=== PATIENT | male | born 1970 | race Hispanic/Latino ===

== ENCOUNTER 2019-10-09 14:21 | Emergency (ER) | payer MEDICAID, SELFPAY ==
--- NOTE | ~2019-10-09 | XR_ITS ---
EXAMINATION: XR chest 1V portable 10/09/2019 15:01 INDICATION: Cough and shortness of breath PROCEDURE: AP portable chest COMPARISON: No prior studies for comparison. FINDINGS: The lungs are clear. The cardiomediastinal silhouette is within normal limits. There are no pleural effusions. There is no pneumothorax suspected. IMPRESSION: 1: NO ACUTE CARDIOPULMONARY DISEASE. Reviewed, dictated and finalized at location A.
--- NOTE | 2019-10-09 14:26 | ED.FEVER ---
HPI - Fever General Chief Complaint: Fever Stated Complaint: FEVER,PNA Time Seen by Provider: 10/09/19 14:26 Source: patient Mode of arrival: ambulatory Limitations: no limitations History of Present Illness HPI Narrative: Patient is a 49-year-old male who presents for evaluation of pneumonia, possible coronavirus from a urgent care. Patient presented to an urgent care as he has had subjective fever, chills, chest pain for over 48 hours. Patient reports malaise, dizziness, myalgias. No nausea, vomiting or abdominal pain. Patient reports rhinorrhea and congestion. 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 Patient's entire family is sick with similar symptoms. Patient denies diarrhea, dysuria or hematuria. No recent travel. No rashes. Related Data Allergies Allergy/AdvReac Type Severity Reaction Status Date / Time No Known Allergies Allergy Verified 10/09/19 14:33 Review of Systems Review of Systems: Narrative: CONSTITUTIONAL: Reports fever and chills EYES: Denies visual changes, redness, or discharge. ENT: Reports rhinorrhea, congestion CARDIOVASCULAR: Reports chest pain RESPIRATORY: Reports dry cough, no current shortness of breath GASTROINTESTINAL: Denies abdominal pain, nausea, vomiting, or diarrhea. GENITOURINARY: Denies dysuria or hematuria. SKIN: Denies rash or itching. MUSCULOSKELETAL: Denies back pain, joint pain, reports myalgias NEUROLOGIC: Denies headache, numbness, reports feeling weakness PMFSH Past Medical History Medical History (Updated 10/09/19 @ 16:25 by Yamilka Schwartz MD) Hyperlipidemia Hypertension Surgical History Surgical History (Updated 10/09/19 @ 16:23 by Yamilka Schwartz MD) H/O hand surgery Social History Social History (Updated 10/09/19 @ 16:23 by Yamilka Schwartz MD) Smoking status: Never smoker Alcohol intake: never Substance use: never Living arrangements: with family Gender identity (if verbalized by the patient): Male Exam Narrative: Exam Narrative: GENERAL: Awake, alert, conversant HEAD: Normocephalic, atraumatic. EYES: PERRLA and EOMI. ENT: Nares clear, no rhinorrhea or epistaxis. Mucous membranes moist. NECK: Supple. CHEST: No respiratory distress, breathing even and non labored, coarse breath sounds bilaterally HEART: Regular rate, sinus rhythm ABDOMEN:Non distended, non tender EXTREMITIES: Normal range of motion. No edema. SKIN: Warm, dry, no rash. NEURO:No focal deficits. Alert and oriented x3 Course Vital Signs Vital signs: Vital Signs Temperature 36.6 C 10/09/19 14:29 Pulse Rate 95 10/09/19 14:29 Respiratory Rate 18 10/09/19 14:29 Blood Pressure 133/81 10/09/19 14:29 Pulse Oximetry 95 10/09/19 14:29 Temperature 36.6 C 10/09/19 14:29 Pulse Rate 89 10/09/19 15:46 Respiratory Rate 19 10/09/19 15:46 Blood Pressure 140/78 10/09/19 15:46 Pulse Oximetry 99 10/09/19 15:46 MDM - Fever MDM Narrative Medical decision making narrative: Patient presented for evaluation of atypical pneumonia, possible coronavirus. At the time of initial assessment, ABCs are intact and vital signs are stable. No fever here. Laboratory results are also reassuring. No severe leukocytosis or lactic acidosis. Patient with lymphopenia present. No severe elevation in inflammatory markers. No UTI. Chest x-ray with some nonspecific changes bilaterally, but radiologist reads as no acute pulmonary abnormality. Given no tachycardia, hypoxemia, I doubt PE. Patient may have atypical bacterial pneumonia versus coronavirus given entire family is sick and possibly has known exposure. At this point, patient is not hypoxemic, no increased work of breathing or severe features that would warrant the need for admission. We will start the patient on doxycycline for atypical pneumonia, advised to return to the ER for worsening shortness of breath. Patient was ad
[2019-10-09 14:29] VITALS: BP 133/81; PULSE 95; RESP 18; TEMP 36.6; O2SAT 95
[2019-10-09 14:33] VITALS: RESP 18
--- NOTE | 2019-10-09 14:47 | ECG_ITS ---
Measurements Intervals [place] Rate: 100 P: 12 SC: 175 QRS: -8 QRSD: 97 T: 41 QT: 306 QTc: 395 Interpretive Statements SINUS TACHYCARDIA INCOMPLETE RIGHT BUNDLE BRANCH BLOCK BASELINE ARTIFACT- II, III, AVF BORDERLINE ECG Electronically Signed On 10-09-2019 14:55:57 CDT by Zhou Oviedo D.O.
[2019-10-09] MEDS: SODIUM CHLORIDE 0.9% IV 2,300 ML/1,000 ML BAG 999 ML IV CONT ×2 (15:02→15:03)
[2019-10-09 15:16] LABS: Basophils Percent Auto 0.2 % (0.2-1.2); Hematocrit 45.9 % (42.0-52.0); Hemoglobin 15.9 g/dL (14.0-18.0); Immature Granulocyte Absolute 0.02 K/mm3 (0.00-0.031); Immature Granulocyte Percent A 0.2 % (0-0.5); Lymphocytes Percent Auto 10.2 % (18.3-44.2); Mean Corpuscular HGB Conc 34.6 g/dl (32-36); Mean Corpuscular Hemoglobin 29.9 pg (26-34); Mean Corpuscular Volume 86.3 fl (80-100); Mean Platelet Volume 11.5 fl (7.4-10.4); Monocytes Absolute Auto 0.9 K/mm3 (0.1-0.6); Monocytes Percent Auto 9.5 % (2.6-8.5); Neutrophils Absolute Auto 7.8 K/mm3 (1.3-6.7); Neutrophils Percent Auto 79.9 % (45.5-73.1); Platelet Count Result 175 k/mm3 (150-375); Red Blood Count 5.32 M/mm3 (4.6-6.20); Red Cell Distribution Width 13.2 % (11.5-14.5); White Blood Count 9.8 K/mm3 (4.5-10.0)
[2019-10-09 15:23] LABS: INR 0.9; Prothrombin Time 12.3 Seconds (11.1-14.7)
[2019-10-09 15:24] LABS: Partial Thromboplastin Time 33.3 SECONDS (22.3-36.8)
[2019-10-09 15:25] LABS: Lactic Acid Reflex 1.5 mmol/L (0.7-2.1)
[2019-10-09 15:28] LABS: Alanine Aminotransferase 19 U/L (4-50); Albumin Level 4.6 g/dL (3.5-5.1); Alkaline Phosphatase 76 U/L (38-126); Aspartate Amino Transferase 27 U/L (17-59); Bilirubin,Total 0.4 mg/dL (0.2-1.3); Blood Urea Nitrogen 14 mg/dL (9-20); CRP 4.8 mg/dL (<1.0); Calcium 8.6 mg/dL (8.4-10.2); Carbon Dioxide 26 mmol/L (22-30); Chloride 99 mmol/L (98-107); Estimated CRCL calculation 85 ml/min; Estimated Glomerular Filt Rate > 60; Glucose 111 mg/dL (75-110); Lactate Dehydrogenase 447 U/L (313-618); Potassium 3.4 mmol/L (3.4-5.0); Sodium 134 mmol/L (137-145)
[2019-10-09 15:36] LABS: Add Urine Microscopic? YES; Appearance Urine Clear (Clear); Bacteria Urine Trace /hpf; Bilirubin Urine Negative (Negative); Blood Urine 1+ (Negative); Color Urine Yellow (Yellow); Glucose Urine UA Negative (Negative); Ketones Urine Negative (Negative); Leukocyte Esterase Ur Negative LEU/UL (Negative); Mucus Urine Few /lpf; Nitrate Urine Negative (Negative); Protein Urine 1+ mg/dL (Negative); Specific Grav Ur 1.026 (1.001-1.035); Urobilinogen Urine Negative mg/dL (<2.0); WBC Urine 0-3 /hpf
[2019-10-09 15:38] LABS: Troponin I < 0.012 ng/mL (0.000-0.034)
[2019-10-09 15:46] VITALS: BP 140/78; PULSE 89; RESP 19; O2SAT 99
[2019-10-09 16:24] VITALS: BP 143/92; PULSE 90; RESP 20; O2SAT 96
[2019-10-10 13:54] LABS: SARS-CoV-2 RNA PCR Positive
== END 2019-10-09 16:30 | disposition home or self-care (01) ==
PROVIDERS: Emergency Provider Emergency Medicine
DX: U07.1 COVID-19 (principal); J12.89 Other viral pneumonia; E78.5 Hyperlipidemia, unspecified; I10 Essential (primary) hypertension; Z20.828 Contact with and (suspected) exposure to other viral communicable diseases; R00.0 Tachycardia, unspecified; I45.10 Unspecified right bundle-branch block
CPT/HCPCS: 36415; 71045; 80053; 81001; 82728; 83605; 83615; 84145; 84484; 85025; 85610; 85730; 86140; 87040; 87635; 93005; 96365; 96367; 99284; C9803; J0456; J0696; J7030; U0003

== ENCOUNTER 2019-10-13 19:15 | Inpatient (IN) | payer MEDICAID, SELFPAY ==
[2019-10-13] VITALS (10 sets, daily range): BP systolic 109–139; BP diastolic 66–91; PULSE 77–93; RESP 28–37; TEMP 37.9–39.4; O2SAT 91–97; BMI 32.3
--- NOTE | ~2019-10-13 | XR_ITS ---
EXAMINATION: XR chest 1V portable DATE: 10/17/2019 06:16 INDICATION: Acute respiratory failure TECHNIQUE: frontal view of the chest was obtained. COMPARISON: Chest radiograph dated 10/16/2019 FINDINGS: Endotracheal tube tip 2.9 cm above the aaron. Increase in bilateral lower lung predominant indistinc t interstitial and patchy airspace opacities throughout both lungs with more dense consolidation at t he bilateral lower lung zones. No pneumothorax. Cannot exclude small bilateral pleural effusions. The cardiomediastinal silhouette is normal. IMPRESSION: 1. Interval increase in diffuse bilateral lung disease which could represent pneumonia, pulmonary karla ma and/or ARDS. Reviewed, dictated and finalized at location A. IMPRESSION: 1. Interval increase in diffuse bilateral lung disease which could represent pn eumonia, pulmonary edema and/or ARDS.
--- NOTE | ~2019-10-13 | XR_ITS ---
EXAMINATION: XR chest port-a-cath/central EXAM DATE: 10/16/2019 21:55 INDICATION: Central line placement. COVID 19. TECHNIQUE: Portable AP frontal chest x-ray was obtained. Comparison is made to prior examination from earlier same day. FINDINGS: There is a new right-sided IJ venous line which is curled above the right clavicle level. E ndotracheal tube tip is 3 centimeters above the aaron (ideal range is between 2 to 5 cm). Feeding t ube is in position. Patient has extensive bilateral acute airspace consistent with COVID 19 pneumonia, with air bronchogr ams, some basilar confluence. No pneumothorax or pleural effusion. Cardiomediastinal silhouette is no rmal. IMPRESSION: 1. Abnormally positioned right IJ line, coronal above the right clavicle. 2. Extensive bilateral acute airspace disease not significantly changed. Reviewed, dictated and finalized at location A.
--- NOTE | ~2019-10-13 | XR_ITS ---
EXAMINATION: XR chest 1V portable DATE: 10/15/2019 05:31 INDICATION: COVID-19 TECHNIQUE: frontal view of the chest was obtained. COMPARISON: Chest radiograph dated 10/13/2019 FINDINGS: Continued increase in diffuse patchy airspace opacities throughout both lungs. No pleural effusion or pneumothorax. Cardiomegaly. IMPRESSION: 1. Worsening extensive bilateral airspace disease consistent with pneumonia. Reviewed, dictated and finalized at location A.
--- NOTE | ~2019-10-13 | XR_ITS ---
EXAMINATION: XR chest 1V portable DATE: 10/16/2019 05:42 INDICATION: Acute respiratory failure TECHNIQUE: frontal view of the chest was obtained. COMPARISON: Chest radiograph dated 10/15/2019 FINDINGS: Endotracheal tube tip 3.1 cm above the aaron. Nasogastric tube extends below the left hemidiaphragm with distal tip collimated off the study. No significant interval change in diffuse patchy airspace opacities throughout both lungs with more d ense consolidation with air bronchograms in the bilateral lower lung zones. No pneumothorax or pleura l effusion. The cardiomediastinal silhouette is normal. Visualized bones and soft tissues are unremar kable. IMPRESSION: 1. No interval change in diffuse bilateral lung disease consistent with pneumonia. Reviewed, dictated and finalized at location A. IMPRESSION: 1. No interval change in diffuse bilateral lung disease consistent with pneumon ia.
--- NOTE | ~2019-10-13 | XR_ITS ---
EXAMINATION: XR chest 1V portable EXAM DATE: 10/13/2019 19:54 INDICATION: Shortness of breath cough. Chest pain. COVID 19 positive. TECHNIQUE: Portable AP frontal chest x-ray was obtained. Comparison is made to prior examination from 10/09/2019. FINDINGS: Interval development of rather extensive bilateral ill-defined groundglass peripheral predo minant opacities, appearance is characteristic but not specific for acute lung injury from COVID 19 i nfection. There is mild cardiomegaly and pulmonary vascular congestion. No pneumothorax or pleural ef fusion. Mild bony degenerative changes. IMPRESSION: Rather extensive airspace disease consistent with COVID 19 infection. Reviewed, dictated and finalized at location A. IMPRESSION: Rather extensive airspace disease consistent with COVID 19 infecti on.
--- NOTE | ~2019-10-13 | XR_ITS ---
EXAMINATION: XR chest ET placement EXAM DATE: 10/15/2019 22:56 INDICATION: COVID 19 pneumonia. Respiratory failure. TECHNIQUE: Portable AP frontal chest x-ray was obtained. Comparison is made to prior examination from earlier same date. FINDINGS: Endotracheal tube tip is 3 centimeters above the aaron (ideal range is between 2 to 5 cm). Feeding tube is in position. Patient has extensive bilateral acute airspace consistent likely COVI D 19 pneumonia. Compared to prior study, better visualize of air bronchograms, may indicate more conf luence, increased density of airspace disease. No pneumothorax or pleural effusion. Cardiac silhouett e is stable in size compared to prior exam. IMPRESSION: 1. ET, NG tube in position. 2. Extensive bilateral pneumonia. Reviewed, dictated and finalized at location G.
--- NOTE | ~2019-10-13 | XR_ITS ---
EXAMINATION: XR chest 1V portable DATE: 10/18/2019 05:59 INDICATION: Acute respiratory failure TECHNIQUE: frontal view of the chest was obtained. COMPARISON: Chest radiograph dated 10/17/2019 FINDINGS: Endotracheal tube tip 2.9 cm above the aaron. Nasogastric tube extends below the left hemidiaphragm with distal tip collimated off the study. No significant interval change in diffuse airspace opaciti es throughout both lungs. No pneumothorax or definitive pleural effusion The cardiomediastinal silhou ette is normal. IMPRESSION: 1. Unchanged diffuse bilateral lung disease which could represent pneumonia, pulmonary edema and/or A RDS. Reviewed, dictated and finalized at location A. IMPRESSION: 1. Unchanged diffuse bilateral lung disease which could represent pneumonia, pu lmonary edema and/or ARDS.
--- NOTE | 2019-10-13 19:17 | ECG_ITS ---
Measurements Intervals [place] Rate: 88 P: 16 VT: 175 QRS: -4 QRSD: 97 T: 15 QT: 329 QTc: 400 Interpretive Statements SINUS RHYTHM INCOMPLETE RIGHT BUNDLE BRANCH BLOCK VOLTAGE CRITERIA FOR LVH BASELINE ARTIFACT- AVF BORDERLINE ECG Electronically Signed On 10-13-2019 20:10:22 CDT by Zhou Oviedo D.O.
[2019-10-13 19:55] LABS: Basophils Percent Auto 0.2 % (0.2-1.2); Hematocrit 39.5 % (42.0-52.0); Hemoglobin 14.2 g/dL (14.0-18.0); Immature Granulocyte Absolute 0.01 K/mm3 (0.00-0.031); Immature Granulocyte Percent A 0.2 % (0-0.5); Lymphocytes Absolute Auto 0.84 K/mm3 (0.9-3.2); Mean Corpuscular HGB Conc 35.9 g/dl (32-36); Mean Corpuscular Hemoglobin 29.8 pg (26-34); Monocytes Absolute Auto 0.4 K/mm3 (0.1-0.6); Monocytes Percent Auto 8.4 % (2.6-8.5); Neutrophils Absolute Auto 3.2 K/mm3 (1.3-6.7); Neutrophils Percent Auto 72.2 % (45.5-73.1); Platelet Count Result 127 k/mm3 (150-375); Red Blood Count 4.76 M/mm3 (4.6-6.20); Red Cell Distribution Width 12.4 % (11.5-14.5); White Blood Count 4.4 K/mm3 (4.5-10.0)
[2019-10-13 20:02] LABS: INR 0.9; Prothrombin Time 11.9 Seconds (11.1-14.7)
[2019-10-13 20:03] LABS: Partial Thromboplastin Time 37.6 SECONDS (22.3-36.8)
[2019-10-13 20:04] LABS: Lactic Acid Reflex 1.3 mmol/L (0.7-2.1)
--- NOTE | 2019-10-13 20:06 | ED.SOB ---
HPI - SOB/Dyspnea General Chief Complaint: Shortness of Breath/Dyspnea Stated Complaint: COVID +, SOB Time Seen by Provider: 10/13/19 20:05 Related Data Allergies Allergy/AdvReac Type Severity Reaction Status Date / Time No Known Allergies Allergy Verified 10/09/19 14:33 [facility] Past Medical History Medical History (Updated 10/13/19 @ 21:19 by Lilly Winter MD) Hyperlipidemia Hypertension Surgical History Surgical History (Updated 10/09/19 @ 16:23 by Yamilka Schwartz MD) H/O hand surgery Social History Social History (Updated 10/09/19 @ 16:23 by Yamilka Schwartz MD) Smoking status: Never smoker Alcohol intake: never Substance use: never Gender identity (if verbalized by the patient): Male Course Consultations Consultation #1: Call the hospitalist for admission. Dr. Colunga accepts. Date: 10/13/19 Time: 21:19 Vital Signs Vital signs: Vital Signs Temperature 102.7 F H 10/13/19 19:30 Pulse Rate 93 10/13/19 19:30 Respiratory Rate 37 H 10/13/19 19:30 Blood Pressure 139/91 H 10/13/19 19:30 Pulse Oximetry 91 10/13/19 19:30 Temperature 102.7 F H 10/13/19 19:30 Pulse Rate 91 10/13/19 20:18 Respiratory Rate 34 H 10/13/19 20:18 Blood Pressure 117/81 10/13/19 20:18 Pulse Oximetry 94 10/13/19 20:18 MDM - SOB/Dyspnea MDM Narrative Medical decision making narrative: Patient presents from 1 week of coughing shortness of breath and fever. His temperature here is 102.7. He points to his chest when I asked for pain. Differential Diagnosis Differential diagnosis: Likely other (Known COVID) Medical Records Attestation: I reviewed the patient's medical records. Lab Data Attestation: I reviewed the patient's lab results. Result diagrams: 10/13/19 19:44 10/13/19 19:44 Labs: Lab Results 10/13/19 10/13/19 10/13/19 Range/Units 19:40 19:41 19:44 WBC 4.4 L (4.5-10.0) K/mm3 RBC 4.76 (4.6-6.20) M/mm3 Hgb 14.2 (14.0-18.0) g/dL Hct 39.5 L (42.0-52.0) % MCV 83.0 (80-100) fl MCH 29.8 (26-34) pg MCHC 35.9 (32-36) g/dl RDW 12.4 (11.5-14.5) % Plt Count 127 L (150-375) k/mm3 MPV 12.0 H (7.4-10.4) fl Immature Gran % (Auto) 0.2 (0-0.5) % Neut % (Auto) 72.2 (45.5-73.1) % Lymph % (Auto) 19.0 (18.3-44.2) % [place] % (Auto) 8.4 (2.6-8.5) % Eos % (Auto) 0.0 (0-4.4) % Baso % (Auto) 0.2 (0.2-1.2) % Lymph # (Auto) 0.84 L (0.9-3.2) K/mm3 Deuel # (Auto) 0.4 (0.1-0.6) K/mm3 Eos # (Auto) 0.0 (0-0.3) K/mm3 Baso # (Auto) 0.0 (0.0-0.1) K/mm3 Abs Immat Gran (auto) 0.01 (0.00-0.031) K/mm3 Absolute Neuts (auto) 3.2 (1.3-6.7) K/mm3 Absolute Nucleated RBC 0.0 (0.0-0.012) K/mm3 Nucleated RBC % 0.0 (0.0-0.2) % PT 11.9 (11.1-14.7) Seconds INR 0.9 APTT 37.6 H (22.3-36.8) SECONDS Sodium (137-145) mmol/L Potassium (3.4-5.0) mmol/L Chloride (98-107) mmol/L Carbon Dioxide (22-30) mmol/L BUN (9-20) mg/dL Creatinine (0.7-1.3) mg/dL Estim Creat Clear Calc ml/min Estimated GFR (59 - ) Glucose (75-110) mg/dL Lactic Acid (0.7-2.1) mmol/L Calcium (8.4-10.2) mg/dL Total Bilirubin (0.2-1.3) mg/dL AST (17-59) U/L ALT (4-50) U/L Alkaline Phosphatase (38-126) U/L Troponin I 0.015 (0.000-0.034) ng/mL C-Reactive Protein (<1.0) mg/dL Total Protein (6.3-8.2) g/dL Albumin (3.5-5.1) g/dL 10/13/19 10/13/19 Range/Units 19:44 19:44 WBC (4.5-10.0) K/mm3 RBC (4.6-6.20) M/mm3 Hgb (14.0-18.0) g/dL Hct (42.0-52.0) % MCV (80-100) fl MCH (26-34) pg MCHC (32-36) g/dl RDW (11.5-14.5) % Plt Count (150-375) k/mm3 MPV (7.4-10.4) fl Immature Gran % (Auto) (0-0.5) % Neut % (Auto) (45.5-73.1) % Lymph % (Auto) (18.3-44.2) % Deuel % (Auto) (2.6-8.5) % Eos % (Auto) (0-4.4) % Baso % (Auto) (0.2-1.2) % Lymph # (Auto)
[2019-10-13 20:08] LABS: Alanine Aminotransferase 32 U/L (4-50); Albumin Level 3.9 g/dL (3.5-5.1); Alkaline Phosphatase 65 U/L (38-126); Aspartate Amino Transferase 70 U/L (17-59); Bilirubin,Total 0.3 mg/dL (0.2-1.3); Blood Urea Nitrogen 12 mg/dL (9-20); CRP 7.8 mg/dL (<1.0); Calcium 7.9 mg/dL (8.4-10.2); Carbon Dioxide 21 mmol/L (22-30); Chloride 99 mmol/L (98-107); Estimated CRCL calculation 94 ml/min; Estimated Glomerular Filt Rate > 60; Glucose 121 mg/dL (75-110); Sodium 129 mmol/L (137-145)
[2019-10-13] MEDS: ACETAMINOPHEN 325 MG TABLET 650 MG PO (20:36)
[2019-10-13 20:45] LABS: Alveolar/Arterial O2 Gradient 211.4 mmHg; Base Excess ABG -3.9 mEq/l (+/-2.0); Device NASAL CANNULA; Fractional Inspired Oxygen 44 %; HCO3 ABG 19.1 mEq/l (22.0-26.0); Modified Allen's Test Pass; Oxygen Content ABG 19.2 %vol (16.0-22.0); Oxygen Saturation ABG 94.3 % (95.0-100.0); Oxyhemoglobin 92.9 % THb (90.0-100.0); PCO2 ABG 29.8 mmHg (35.0-45.0); PO2 ABG 68.4 mmHg (80.0-100.0); PO2 FiO2 Ratio Arterial Blood 1.55 %; Site Drawn LEFT RADIAL; Total Hemoglobin 14.7 g/dL (12.0-18.0); pH ABG 7.425 (7.350-7.450)
[2019-10-13 20:50] LABS: Troponin I 0.015 ng/mL (0.000-0.034)
[2019-10-13 21:30] LABS: Add Urine Microscopic? YES; Appearance Urine Clear (Clear); Bacteria Urine Trace /hpf; Bilirubin Urine Negative (Negative); Blood Urine 1+ (Negative); Color Urine Yellow (Yellow); Glucose Urine UA Negative (Negative); Ketones Urine Negative (Negative); Leukocyte Esterase Ur Negative LEU/UL (Negative); Mucus Urine Rare /lpf; Nitrate Urine Negative (Negative); Protein Urine 2+ mg/dL (Negative); RBC Urine 0-2 /hpf (0-2); Specific Grav Ur 1.017 (1.001-1.035); Urobilinogen Urine Negative mg/dL (<2.0)
[2019-10-13] MEDS: IBUPROFEN 600 MG TABLET PO (21:55)
--- NOTE | 2019-10-13 22:33 | ADMGEN ---
This patient, Harrison Mayo, was admitted to [facility] Surg Room 329-01. Patient/family oriented to hospital policies and general routines including ID bracelet, bed and alarms, visiting hours, pain management, procedures, bathroom and other care routines, personal items, smoking policy, room service/diet, and visiting hours. Valuables list has been completed. Information on how to activate the Rapid Response Team has been discussed. Patient/Family are encouraged to report perceived risks to care and to ask questions if they do not understand what they are told or what they should do.
--- NOTE | 2019-10-13 22:44 | PM.IMHP ---
H&P: HPI History of Present Illness Chief complaint: COVID Narrative: This is a pleasant 49 year old Greek speaking male with known HTN and hyperlipidemia who recently tested positive for COVID-19 virus and presented to the hospital for evaluation of shortness of breath. The patient relates that he has had upper respiratory symptoms including shortness of breath, a dry cough, congestion and fevers for the past week. He also has been having diarrhea. He has had daily fevers in the low 100s. He denies any significant wheezing or chest pain. The patient was evaluated in the ER and found to be in acute hypoxic respiratory failure and placed on 6L of oxygen via NC. CXR was obtained which demonstrated extensive airspace disease consistent with COVID 19 infection. The patient denies any other symptoms at this time and we have been asked to admit the patient to the hospital for further care. Review of Systems Review of Systems: All systems reviewed & are unremarkable except as noted in HPI and below PMFSH Past Medical History Medical History Hyperlipidemia Hypertension Surgical History Surgical History H/O hand surgery Family History Family History (Updated 10/13/19 @ 22:50 by Drake Colunga MD) Other Hypertension Social History Social History Smoking status: Former smoker Tobacco type: cigarettes Alcohol intake: never Substance use: never Gender identity (if verbalized by the patient): Male Spiritual care concerns: No Meds Home Medications and Allergies Home Medications Medication Instructions Recorded Confirmed Type acetaminophen 500 mg PO Q6H PRN #30 cap 10/09/19 10/13/19 Rx doxycycline hyclate 100 mg PO Q12H 10 Days #20 cap 10/09/19 10/13/19 Rx Allergies Allergy/AdvReac Type Severity Reaction Status Date / Time No Known Allergies Allergy Verified 10/09/19 14:33 Vital Signs Vital Signs - 24 hr 10/13/19 19:30 10/13/19 19:35 10/13/19 20:18 Temperature 39.3 C H Pulse Rate 93 91 Respiratory Rate 37 H 34 H Blood Pressure 139/91 H 117/81 Pulse Oximetry 91 95 94 10/13/19 21:06 10/13/19 21:28 10/13/19 21:55 Temperature 39.4 C H 39.4 C H 39.4 C H Pulse Rate Respiratory Rate Blood Pressure Pulse Oximetry 10/13/19 22:07 10/13/19 22:10 Temperature 38.8 C H Pulse Rate 80 Respiratory Rate 28 H Blood Pressure 116/79 Pulse Oximetry 94 Exam Const: General: cooperative, alert, awake, diaphoretic, ill appearing and other (Febrile to touch++ ) Nutritional Appearance: obese Orientation/consciousness: patient oriented x3 HENMT: Head: normal to inspection General nose exam: Normal external nose present Face and sinus: normal facial exam Eyes: Pupils: Equal, round and reactive pupils present EOM: EOMs intact bilaterally Neck: Neck: supple and no JVD Thyroid: thyroid normal Lymphatic: lymphadenopathy not noted Resp: Effort & Inspection: tachypneic Auscultation: crackles bilateral and diminished lung sounds Cardio: Rate: regular rate Rhythm: regular rhythm Heart sounds: no murmurs GI: Inspection: normal to inspection Auscultation: normal bowel sounds Skin: General skin exam: normal color and no rashes or lesions noted Neuro: General: patient oriented x3 Cranial nerves: Yes CN's II-XII intact bilaterally and Yes Equal, round and reactive pupils present Speech: normal speech Motor exam (neuro): 5/5 motor strength present throughout Sensory Exam: normal sensation Extrem: General: normal to inspection and no edema Psych: Mental Status: mental status grossly normal Affect: normal affect H&P: Results Labs Labs: Short CBC 10/13/19 Range/Units 19:44 WBC 4.4 L (4.5-10.0) K/mm3 Hgb 14.2 (14.0-18.0) g/dL Hct 39.5 L (42.0-52.0) % Plt Count 127 L (150-375)
[2019-10-14] VITALS (26 sets, daily range): BP systolic 101–119; BP diastolic 54–80; PULSE 59–104; RESP 18–40; TEMP 36.3–39.1; O2SAT 86–100
[2019-10-14] MEDS: ACETAMINOPHEN 325 MG TABLET 650 MG PO ×4 (00:32→21:02)
--- NOTE | 2019-10-14 02:12 | PCRCNOTE ---
Window of time for administration has passed. See next scheduled administration.
[2019-10-14] MEDS: SODIUM CHLORIDE 0.9% IV 1,000 ML 75 ML IV CONT (06:02)
[2019-10-14 06:21] LABS: Basophils Percent Auto 0.2 % (0.2-1.2); Hematocrit 41.9 % (42.0-52.0); Hemoglobin 14.6 g/dL (14.0-18.0); Immature Granulocyte Absolute 0.02 K/mm3 (0.00-0.031); Immature Granulocyte Percent A 0.5 % (0-0.5); Immature Platelet Fraction Pct 7.7 % (0.9-11.2); Lymphocytes Percent Auto 27.9 % (18.3-44.2); Mean Corpuscular HGB Conc 34.8 g/dl (32-36); Mean Corpuscular Hemoglobin 29.8 pg (26-34); Mean Corpuscular Volume 85.5 fl (80-100); Mean Platelet Volume 12.1 fl (7.4-10.4); Monocytes Absolute Auto 0.3 K/mm3 (0.1-0.6); Neutrophils Absolute Auto 2.8 K/mm3 (1.3-6.7); Neutrophils Percent Auto 65.4 % (45.5-73.1); Platelet Count Result 113 k/mm3 (150-375); Red Cell Distribution Width 12.8 % (11.5-14.5); White Blood Count 4.3 K/mm3 (4.5-10.0)
[2019-10-14 06:39] LABS: Potassium 3.8 mmol/L (3.4-5.0)
[2019-10-14 06:49] LABS: Blood Urea Nitrogen 20 mg/dL (9-20); Calcium 7.7 mg/dL (8.4-10.2); Carbon Dioxide 22 mmol/L (22-30); Chloride 102 mmol/L (98-107); Estimated CRCL calculation 52 ml/min; Estimated Glomerular Filt Rate 59; Glucose 96 mg/dL (75-110); Magnesium 2.3 mg/dL (1.6-2.3); Sodium 133 mmol/L (137-145)
[2019-10-14] MEDS: ALBUTEROL SULFATE (*SP) AEROSOL 1 PUFF 2 PUFF INHALATION ×4 (07:24→19:14)
[2019-10-14] MEDS: ENOXAPARIN 40 MG/0.4 ML SYRINGE SUB-Q ×2 (09:44→21:05)
[2019-10-14] MEDS: DOXYCYCLINE HYCLATE 100 MG TABLET PO (09:44)
--- NOTE | 2019-10-14 13:37 | PM.IMPN ---
Progress Note: A&P Assessment and Plan (1) Acute respiratory failure with hypoxia: Code(s): J96.01 - Acute respiratory failure with hypoxia Status: Acute Assessment and Plan: Secondary to COVID-19 infection. The patient is requiring 5L per NC. Continue supplemental oxygen via NC. Will begin continuous pulse oximetry and telemetry. Continue bronchodilators via MDI PRN. (2) COVID-19: Code(s): U07.1 - COVID-19 Status: Acute Assessment and Plan: SARS-CoV-2 testing was positive 10/09/19. His symptoms progressed over the past week so he presented to the ED for further evaluation. He is on 5L per NC. Continue supplemental oxygen as needed to achieve a pulse oxygen saturation of 90%. Continue droplet isolation. Continue supportive care with antipyretics PRN. CRP is elevated at 7.8. AST is 70. Will trend acute phase reactants. Will repeat CXR tomorrow. Continue to monitor. (3) BAYLEE (acute kidney injury): Code(s): N17.9 - Acute kidney failure, unspecified Status: Acute Assessment and Plan: Cr was 0.7 and BUN 12 at admission. Cr is 1.3 and BUN 20 today. UA proteinuria whichs likely a result of his COVID-19 infection. Plan to continue gentle IV fluids and monitor Cr closely. (4) Thrombocytopenia: Code(s): D69.6 - Thrombocytopenia, unspecified Status: Acute Assessment and Plan: Platets are low at 113. This is likely reactive. Will continue to monitor. (5) Hyponatremia: Code(s): E87.1 - Hypo-osmolality and hyponatremia Status: Acute Assessment and Plan: Sodium at admission was 129. Sodium 6/ was 134. He appears dehydrated. Insensible losses due to fever are likely contributing. He is receiving gentle IV fluids due to BAYLEE. Sodium improved to 133 today. Will continue to monitor. (6) DVT prophylaxis: Code(s): Z29.9 - Encounter for prophylactic measures, unspecified Status: Acute Assessment and Plan: Plan to continue lovenox SQ and monitor platelets closely. Time Spent With Patient Time with patient: 15 - 25 minutes Subjective Date/time seen: 10/14/19 13:37 Interval history: Mr. Mayo is seen in follow-up for COVID-19. He reports dyspnea at rest and with exertion. He also endorses left hip discomfort. He denies chest pain and palpitations. He endorses chills. He denies vomiting and nausea. He reports diarrhea last night at 10:00PM but as not had any episodes since. He is tolerating PO intake well. He reports cough with white sputum. He reports generalized weakness. He denies leg discomfort and swelling. Review of Systems Review of Systems: All systems reviewed & are unremarkable except as noted in HPI and below Exam Narrative: Exam Narrative: General: Well-developed, cooperative, and appears to be in no acute distress. HEENT: Normocephalic and atraumatic. Eyes: Conjunctivae and lids normal. PERRL. EOMI. Ears: External ears normal without lesions or deformity. Nose: External nose normal without nasal discharge. Mouth and Throat: Mucous membranes moist. Posterior pharynx without erythema or exudate. Neck: Supple without lymphadenopathy or masses. Cardiac: Regular rate and rhythm. S1 and S2 normal. No murmur appreciated. No JVD. No carotid bruits. Lungs: Normal respiratory effort without accessory muscle use. Clear to auscultation bilaterally without rales, rhonchi, and wheezing. Abdomen: Appearance grossly normal. Bowel sounds present in all four quadrants. Abdomen is soft, non-distended, and non-tender. Musculoskeletal: No joint erythema, swelling, or tenderness. ROM within normal limits. Extremities: No lower extremity edema. Palpable DP and PT bilaterally. Neurological: Alert and oriented x3. No focal neurological deficits noted. Speech is clear. Skin: Normal color, texture, and turgor. No lesions or eruptions. Psychiatric: Judgment and insight intact. Mood and affect normal. Objectiv
[2019-10-14 15:29] LABS: Alveolar/Arterial O2 Gradient 277.6 mmHg; Base Excess ABG -4.6 mEq/l (+/-2.0); Carboxyhemoglobin 0.3 % THb (0-2.0); Fractional Inspired Oxygen 50 %; Methemoglobin ABG 0.4 %THb (0-1.5); Oxygen Content ABG 17.4 %vol (16.0-22.0); Oxyhemoglobin 85.2 % THb (90.0-100.0); PCO2 ABG 27.5 mmHg (35.0-45.0); PO2 FiO2 Ratio Arterial Blood 0.96 %; Reduced Hemoglobin 14.1 %THb (0-5.0); Total Hemoglobin 14.6 g/dL (12.0-18.0); pH ABG 7.434 (7.350-7.450)
[2019-10-14 15:32] LABS: Device NASAL CANNULA; Modified Allen's Test Pass; Oxygen Saturation ABG 85.8 % (95.0-100.0); Site Drawn RIGHT RADIAL
--- NOTE | 2019-10-14 16:47 | PC.NURSE ---
This patient, Harrison Mayo, was transferred to [ICU ] on 10/14/19 at 1650. Personal belongings sent with patient. Belongings list checked and signed with receiving [RN]. Report given to [Peter]. Appropriate documentation sent with patient.
--- NOTE | 2019-10-14 16:52 | PC.NURSE ---
Patient transferred from [facility] to ICU1 via bed as IMU overflow at 1630. Medications and chart brought with patient. Patient is currently on 12L hi flow O2.
[2019-10-14] MEDS: SODIUM CHLORIDE 0.9% IV 1,000 ML 50 ML IV CONT (17:04)
--- NOTE | 2019-10-14 19:22 | PC.NURSE ---
Patient placed on NRB with 15L HF NC. Patient prior to was 82%. Now 95-98%. Continue to monitor. Patient denies distress. 88SR, 30RR, 96%, 119/80. 100.9 axil.
[2019-10-14] MEDS: GUAIFENESIN 200 MG/10 ML UDC PO (21:02)
--- NOTE | 2019-10-14 21:19 | PC.NURSE ---
Patient placed on Airvo2 at 60L 86% with NRB.
[2019-10-15] VITALS (39 sets, daily range): BP systolic 78–237; BP diastolic 47–133; PULSE 68–128; RESP 22–41; TEMP 36.9–38.9; O2SAT 29–100
[2019-10-15] MEDS: GUAIFENESIN 200 MG/10 ML UDC PO ×3 (00:59→18:07)
[2019-10-15] MEDS: ACETAMINOPHEN 325 MG TABLET 650 MG PO ×4 (00:59→18:07)
[2019-10-15 04:17] LABS: Basophils Percent Auto 0.2 % (0.2-1.2); Hematocrit 37.1 % (42.0-52.0); Hemoglobin 13.1 g/dL (14.0-18.0); Immature Granulocyte Absolute 0.06 K/mm3 (0.00-0.031); Immature Granulocyte Percent A 0.7 % (0-0.5); Immature Platelet Fraction Pct 7.4 % (0.9-11.2); Lymphocytes Absolute Auto 0.66 K/mm3 (0.9-3.2); Lymphocytes Percent Auto 7.8 % (18.3-44.2); Mean Corpuscular HGB Conc 35.3 g/dl (32-36); Mean Corpuscular Hemoglobin 29.5 pg (26-34); Mean Corpuscular Volume 83.6 fl (80-100); Mean Platelet Volume 11.9 fl (7.4-10.4); Monocytes Absolute Auto 0.2 K/mm3 (0.1-0.6); Monocytes Percent Auto 2.7 % (2.6-8.5); Neutrophils Absolute Auto 7.5 K/mm3 (1.3-6.7); Neutrophils Percent Auto 88.6 % (45.5-73.1); Platelet Count Result 121 k/mm3 (150-375); Red Blood Count 4.44 M/mm3 (4.6-6.20); Red Cell Distribution Width 12.7 % (11.5-14.5); White Blood Count 8.5 K/mm3 (4.5-10.0)
[2019-10-15 04:35] LABS: D Dimer 0.87 ug/mL (<0.48)
[2019-10-15 04:59] LABS: Alanine Aminotransferase 44 U/L (4-50); Albumin Level 3.3 g/dL (3.5-5.1); Alkaline Phosphatase 81 U/L (38-126); Aspartate Amino Transferase 97 U/L (17-59); Bilirubin,Total 0.4 mg/dL (0.2-1.3); Blood Urea Nitrogen 13 mg/dL (9-20); CRP 18.7 mg/dL (<1.0); Calcium 7.5 mg/dL (8.4-10.2); Carbon Dioxide 21 mmol/L (22-30); Chloride 104 mmol/L (98-107); Estimated CRCL calculation 108 ml/min; Estimated Glomerular Filt Rate > 60; Glucose 112 mg/dL (75-110); Potassium 3.8 mmol/L (3.4-5.0); Sodium 133 mmol/L (137-145)
[2019-10-15 05:06] LABS: Lactate Dehydrogenase 3075 U/L (313-618)
[2019-10-15 05:46] LABS: Vitamin D 25 Hydroxy 23.2 ng/mL
[2019-10-15] MEDS: ALBUTEROL SULFATE (*SP) AEROSOL 1 PUFF 2 PUFF INHALATION ×5 (07:52→23:34)
[2019-10-15] MEDS: SODIUM CHLORIDE 0.9% IV 1,000 ML 50 ML IV CONT (08:44)
[2019-10-15] MEDS: ENOXAPARIN 40 MG/0.4 ML SYRINGE SUB-Q ×2 (08:49→20:24)
--- NOTE | 2019-10-15 09:12 | WPDCNINT ---
Assessment and Plan Assessment and plan (1) Acute respiratory failure with hypoxia: Code(s): J96.01 - Acute respiratory failure with hypoxia Status: Acute Assessment and Plan: Acute respiratory failure with increasing oxygen requirements, dominant high-flow nasal therapy with 93% FiO2 along with 15 L non-rebreather mask. O2 sats between 88 and 92% - patient tachypneic with respiratory rate between 30s to 40s, patient does look comfortable at this time. - I was consulted to manage the patient for COVID-19 -chest x-ray and ABGs reviewed, continue high-flow nasal therapy along with 50 L non-rebreather mask -started patient on ceftriaxone and azithromycin -continue albuterol MDI (2) COVID-19: Code(s): U07.1 - COVID-19 Status: Acute Assessment and Plan: Positive SARS-CoV-2 PCR - patient placed on droplet, airborne and contact isolation/precautions -pictures disease has been consulted, agrees with REMDESIVIR, orders have been placed (3) Thrombocytopenia: Code(s): D69.6 - Thrombocytopenia, unspecified Status: Acute Assessment and Plan: Unknown etiology at this time. Platelets have improved, will continue to monitor (4) Fever: Qualifiers: Fever type: unspecified Qualified Code(s): R50.9 - Fever, unspecified Code(s): R50.9 - Fever, unspecified Status: Acute Assessment and Plan: Patient with fevers T-max of 102.3? -continue p.r.n. Tylenol (5) Hyponatremia: Code(s): E87.1 - Hypo-osmolality and hyponatremia Status: Acute Assessment and Plan: Stable hyponatremia, will continue to monitor (6) BAYLEE (acute kidney injury): Code(s): N17.9 - Acute kidney failure, unspecified Status: Acute Assessment and Plan: Patient had creatinine of 1.3 unit patient, has received IV fluids, creatinine has normalized to 0.6 -urine output has been adequate -continue to monitor renal function, electrolytes and urine output (7) Essential hypertension: Code(s): I10 - Essential (primary) hypertension Status: Acute Assessment and Plan: Stable blood pressures, will hold all antihypertensives at this time (8) DVT prophylaxis: Code(s): Z29.9 - Encounter for prophylactic measures, unspecified Status: Acute Assessment and Plan: Lovenox 40 mg q.12 hours Additional Plan Discussed with patient using coal shoveler services and updated the patient with his condition and plan of care. Patient is aware that his oxygen requirements have gone up, and his O2 sats have been having between 88-92%. Patient currently low-dose comfortable, but if his situation worsens, which means if he is significantly tachypneic, hypoxic low O2 sats he may require a breathing tube and placed on a breathing machine. He agrees and acknowledges Code status: Full code Critical care time spent: 47 minutes Due to a high probability of clinically significant, life threatening deterioration, the patient required my highest level of preparedness to intervene emergently and I personally spent this critical care time directly and personally managing the patient. This critical care time included obtaining a history; examining the patient; pulse oximetry; ordering and review of studies; arranging urgent treatment with development of a management plan; evaluation of patient's response to treatment; frequent reassessment; and discussions with other providers. It was exclusive of separately billable procedures and treating other patients and teaching time. Please see Assessment and Plan section and the rest of the note for further information on patient assessment and treatment Neon Molder Consult Note Consult date: 10/15/19 Time Seen: 06:58 Reason for consult: Acute respiratory failure with increasing oxygen requirements, positive COVID-19, fevers HPI: Harrison Mayo is a 49 year old male Kyrgyz-speaking male with history of hypertension and hyperl
--- NOTE | 2019-10-15 09:18 | PM.IMPN ---
Progress Note: A&P Assessment and Plan (1) Acute respiratory failure with hypoxia: Code(s): J96.01 - Acute respiratory failure with hypoxia Status: Acute Assessment and Plan: Secondary to COVID-19 infection. Patient now on high-flow oxygen. Chest x-ray today reviewed with cutting machine operator helper. Worsening extensive bilateral airspace disease on imaging. Continue albuterol HFA. Will continue to monitor closely. Ad Writer did discuss with patient code status in case of worsening respiratory status. Patient would be in agreement with intubation if necessary. Treatment of COVID-19 infection as noted below. Telemetry reviewed on 10/15/2019 with sinus rhythm. (2) COVID-19: Code(s): U07.1 - COVID-19 Status: Acute Assessment and Plan: SARS-CoV-2 testing was positive on 10/09/2019. Acute respiratory failure as a result as noted above. Infectious Disease consulted with patient given remdesivir today. Acute phase reactants elevated and will monitor. (3) Thrombocytopenia: Code(s): D69.6 - Thrombocytopenia, unspecified Status: Acute Assessment and Plan: Platelets now improving again up to 121,000 today. Most likely reactive to infection. Will monitor. No sign of bleeding. (4) Hyponatremia: Code(s): E87.1 - Hypo-osmolality and hyponatremia Status: Acute Assessment and Plan: Sodium now improved and stable at 133 today. Will continue to monitor. (5) BAYLEE (acute kidney injury): Code(s): N17.9 - Acute kidney failure, unspecified Status: Acute Assessment and Plan: Now resolved with creatinine normal at 0.60 today. Low-dose IV fluids remain in place. Will be cautious with fluids given COVID-19 positive status. Will monitor. (6) Essential hypertension: Code(s): I10 - Essential (primary) hypertension Status: Acute Assessment and Plan: Blood pressure reviewed on 10/15/2019 and currently stable. Not on antihypertensives. Will monitor. (7) DVT prophylaxis: Code(s): Z29.9 - Encounter for prophylactic measures, unspecified Status: Acute Assessment and Plan: Continue prophylactic Lovenox with platelets improving. Will monitor. Time Spent With Patient Time with patient: 15 - 25 minutes Subjective Date/time seen: 10/15/19 09:18 Interval history: Date of Service: 10/15/2019. Admitted with acute respiratory failure, COVID-19 infection. Barrel Handler used as patient is Kiswahili speaking. Complains of throat pain, pressure around eyes. Also complains of shortness of breath with breathing so-so. Has had fever. Requiring high-flow oxygen. Review of Systems Constitutional: Constitutional: Reports fever(s) (up to 102.1 this morning) Eyes: Comments: pressure around eyes ENT: Comments: pain in throat Cardiovascular: Cardiovascular: Denies chest pain Respiratory: Respiratory: Reports dyspnea Gastrointestinal: Gastrointestinal: Denies abdominal pain, Denies nausea and Denies vomiting Genitourinary: Genitourinary: Reports no additional male genitourinary complaints Musculoskeletal: Musculoskeletal: Reports no additional musculoskeletal complaints Integumentary/Breasts: Skin/Breast: Denies rash Neurologic: Denies headache(s) Psychiatric: Psychiatric: Denies confusion Exam Narrative: Exam Narrative: Awake and alert. Const: General: no acute distress HENMT: Mouth: Yes moist mucous membranes Other: High flow oxygen in place with non-rebreather. Eyes: Sclera: sclerae normal Neck: Neck: supple Lymphatic: lymphadenopathy not noted Resp: Auscultation: rales (bialterally), no wheezes and diminished lung sounds Cardio: Rate: regular rate Rhythm: regular rhythm GI: Inspection: non-distended GI Palp: Yes Soft to palpation and No Tenderness to palpation present (GI) Auscultation: normal bowel sounds Skin: General skin exam: normal color Neuro: Cognition (Neuro): normal cognition Spe
[2019-10-15 09:21] LABS: Alveolar/Arterial O2 Gradient 606.7 mmHg; Base Excess ABG -3.7 mEq/l (+/-2.0); Fractional Inspired Oxygen 100 %; HCO3 ABG 18.7 mEq/l (22.0-26.0); Oxygen Content ABG 18.7 %vol (16.0-22.0); Oxygen Saturation ABG 96.4 % (95.0-100.0); Oxyhemoglobin 94.6 % THb (90.0-100.0); PCO2 ABG 27.2 mmHg (35.0-45.0); PO2 ABG 79.1 mmHg (80.0-100.0); PO2 FiO2 Ratio Arterial Blood 0.79 %
[2019-10-15 09:22] LABS: Device HIGH FLOW THERAPY; Modified Allen's Test Pass; Site Drawn RIGHT RADIAL
[2019-10-15 09:23] LABS: pH ABG 7.454 (7.350-7.450)
[2019-10-15 10:15] LABS: Alanine Aminotransferase 40 U/L (4-50)
--- NOTE | 2019-10-15 13:10 | WPDINFPN2 ---
Progress Note: A&P Assessment and Plan (1) COVID-19: Code(s): U07.1 - COVID-19 Status: Acute Assessment and Plan: 1. CoVid 19 viral pneumonia 2. Respiratory failure due to #1 REC Agree remdesivir #1 / 5 days. Monitor LFTs, stop if > 5x normal. No antibacterials. Any additional therapy should be in the setting of a clinical trial. Subjective Date/time seen: 10/15/19 13:10 Objective Data Vital Signs Vital Signs: Vital Signs - 24 hr 10/14/19 13:20 10/14/19 14:00 10/14/19 15:12 Temperature 37.3 C 38.6 C H Pulse Rate 104 H 104 H Respiratory Rate 40 H 40 H Blood Pressure 105/69 Pulse Oximetry 88 L 88 L 10/14/19 15:35 10/14/19 15:47 10/14/19 16:40 Temperature 39.1 C H Pulse Rate 90 Respiratory Rate 32 H Blood Pressure 110/72 Pulse Oximetry 86 L 91 92 10/14/19 17:25 10/14/19 17:36 10/14/19 19:23 Temperature 38.8 C H 38.3 C H Pulse Rate 82 95 Respiratory Rate 31 H Blood Pressure 119/80 Pulse Oximetry 95 10/14/19 19:41 10/14/19 20:00 10/14/19 21:02 Temperature 38.3 C H Pulse Rate 89 88 Respiratory Rate 35 H Blood Pressure Pulse Oximetry 95 10/14/19 21:30 10/14/19 21:40 10/14/19 22:00 Temperature Pulse Rate 89 Respiratory Rate Blood Pressure Pulse Oximetry 94 96 10/14/19 22:20 10/14/19 23:10 10/14/19 23:30 Temperature Pulse Rate 86 Respiratory Rate 32 H Blood Pressure Pulse Oximetry 93 94 94 10/14/19 23:45 10/15/19 00:00 10/15/19 01:42 Temperature 38.7 C H Pulse Rate 80 80 89 Respiratory Rate 38 H 37 H 38 H Blood Pressure 121/73 Pulse Oximetry 91 91 91 10/15/19 02:00 10/15/19 02:01 10/15/19 02:06 Temperature Pulse Rate 85 86 85 Respiratory Rate 41 H 40 H Blood Pressure Pulse Oximetry 91 91 10/15/19 03:30 10/15/19 04:00 10/15/19 06:00 Temperature 37.0 C Pulse Rate 74 74 78 Respiratory Rate 34 H 34 H Blood Pressure 131/84 Pulse Oximetry 93 91 92 10/15/19 07:32 10/15/19 07:53 10/15/19 08:00 Temperature 38.9 C H 38.9 C H Pulse Rate 86 Respiratory Rate 40 H Blood Pressure 92/62 L Pulse Oximetry 92 88 L 10/15/19 08:45 10/15/19 10:00 10/15/19 11:50 Temperature 37.5 C 38.1 C H Pulse Rate 69 74 Respiratory Rate 38 H 39 H Blood Pressure 120/77 111/74 Pulse Oximetry 91 92 10/15/19 11:52 10/15/19 12:55 Temperature 38.1 C H 38.4 C H Pulse Rate Respiratory Rate Blood Pressure Pulse Oximetry Intake/Output Intake/Output: Intake & Output 10/12/19 10/13/19 10/14/19 10/15/19 23:59 23:59 23:59 23:59 Intake Total 1660 2050 Output Total 900 Balance 1660 1150 Meds/Results Medications: Active Medications Generic Name Dose Route Start Last Admin Trade Name Freq PRN Reason Stop Dose Admin Acetaminophen 650 mg 10/14/19 00:00 10/15/19 11:52 Tylenol Tablet PO 650 mg Q4H PRN Administration Mild Pain (1-3) or Fever Albuterol 2 puff 10/13/19 22:55 10/15/19 12:09 Proventil Hfa INHALATION 2 puff QIDRT TRI Administration Enoxaparin Sodium 40 mg 10/14/19 21:00 10/15/19 08:49 Lovenox SUB-Q 40 mg Q12HR TRI Administration Guaifenesin 200 mg 10/14/19 20:05 10/15/19 07:32 Guaifenesin Liq PO 200 mg Q4H PRN Administration Cough Sodium Chloride 1,000 mls @ 50 mls/hr 10/14/19 05:15 10/15/19 08:44 Normal Saline Iv IV CONT 50 mls/hr .Q20H TRI Administration Ceftriaxone Sodium/Dextrose 1 gm in 50 mls @ 100 mls/hr 10/15/19 07:45 10/15/19 09:26 Rocephin 1 Gm/D5w 50 Ml IVPB Infused QAM TRI Infusion Azithromycin 500 mg in 250 mls @ 250 mls/hr 10/15/19 07:45 10/15/19 11:51 Zithromax IVPB Infused QAM TRI Infusion Remdesivir 100 mg/ Sodium 250 mls @ 250 mls/hr 10/16/19 09:00 Chloride IVPB 10/20/19 09:01 Q24H TRI Radiology Results: ITS Impressions Chest X-Ray 10/15/19 07:05 IMPRESSION: 1. Worsening extensive bilateral airspace disease consisten
--- NOTE | 2019-10-15 18:18 | CONS_ITS ---
DATE OF CONSULTATION: 10/15/2019 REASON FOR CONSULTATION: COVID pneumonia. HISTORY OF PRESENT ILLNESS: The patient is a 49-year-old male, who is a gakona Lib[place] speaker. He was here in the emergency room on 08 of October from [facility]gent Care with 2 days of fever, chills, and chest pain with exposure from his family and from his workplace to COVID. Here, he had normal vital signs with a pulse ox initially 95%, later 99% on room air. He was placed on doxycycline for atypical pneumonia. His COVID swab returned positive though it is not documented if this was known before he was discharged from the emergency room. He returned to the emergency room 2 days ago with shortness of breath that was progressive over the prior 4 days and he also reported dry cough, congestion, loose bowel movements, and fever into the 38 range. He was replaced on 6 L oxygen. He is now in the intensive care unit on high-flow O2 by nasal cannula, by face mask. Consultation requested. He has been given today remdesivir, ceftriaxone and azithromycin. ALLERGIES: NONE KNOWN. MEDICATIONS: No chronic home medications. No immunosuppressants. HABITS: Ex-smoker. No alcohol. PAST MEDICAL HISTORY: Hyperlipidemia, hypertension, and some type of hand surgery. Exam also indicates a scar over the left patella tendon transverse orientation. FAMILY HISTORY: Not pertinent to his present illness. SOCIAL HISTORY: He is . Lives locally. Works for a [employer] company. REVIEW OF SYSTEMS: 5-point review otherwise negative per chart, not obtaining any comprehensive fashion from the patient. PHYSICAL EXAMINATION: GENERAL: This is a middle-aged male, who appears actual age, mild respiratory distress. Since arrival here, his T-max was 39.4 on his first hospital day and yesterday T-max 38.9, presently 38.4. SKIN: Warm and dry. No rashes. NODES: He has no cervical adenopathy. EENT: Conjunctivae normal. Pupils equal, round, and reactive to light. Oropharynx and oral mucosa normal. No thrush. No ulcerations. NECK: No masses, tracheal deviation, tenderness, or meningismus. LUNGS: Clear to auscultation and percussion. CARDIAC: Regular rate and rhythm. No murmur, gallop, or rub. Pulses are 2+. ABDOMEN: Soft, nontender. No organomegaly. No masses. EXTREMITIES: No clubbing, cyanosis, or edema. No splinter hemorrhages. MUSCULOSKELETAL: No active joint inflammation. No muscle tenderness. LABORATORY DATA: Blood cultures from the 2nd, final no growth and from the 6th no growth so far. White count was 4.3, now 8.5, hemoglobin 13.1, platelets are 121. His blood gases on re-arrival 7.43, 30, 68 on 6 L. Today, 7.45, 27, 79 on high-flow O2 estimated at 60 L. AA gradient is risen from 211 up to 607. He has mild hyponatremia. CO2 is 21, creatinine 0.6, glucose 112. Ferritin is high. AST is rising up to 97. ALT is normal. LDH 3075. CRP is 19. Albumin 3.3. UA reviewed. Scant evidence of infection. RADIOLOGY: I pursued this chest x-rays 2nd, and 8th shows increasing interstitial fluffy infiltrates throughout both lungs. I reviewed the radiologist readings as well. No effusions. Heart size normal. ASSESSMENT: 1. Hypoxemic respiratory failure. 2. Fever, lung infiltrates, leukopenia, positive COVID test, all quite suspicious for viral pneumonia due to the same organism. Vanc is also responsible for his hypoxemia. Other forms of lower respiratory tract infection not suspected. 3. Mild elevation liver function tests may be due to his viral infection. RECOMMENDATION: 1. Stop antibacterials. 2. Agree with initiation of remdesivir x5 days with a loading dose 200 mg. 3. Follow liver function tests and if rising over 5 times normal, we will need to hold the remdesivir at least temp
--- NOTE | 2019-10-15 21:26 | PC.NURSE ---
Dr. Watson notified of Low O2 sat. Different places tried for reading O2. Get ABG and call with results.
[2019-10-15 21:50] LABS: Alveolar/Arterial O2 Gradient 645.2 mmHg; Base Excess ABG -2.1 mEq/l (+/-2.0); Carboxyhemoglobin 0.3 % THb (0-2.0); Fractional Inspired Oxygen 100 %; HCO3 ABG 19.8 mEq/l (22.0-26.0); Methemoglobin ABG 0.3 %THb (0-1.5); Oxygen Content ABG 15.4 %vol (16.0-22.0); Oxygen Saturation ABG 81.6 % (95.0-100.0); Oxyhemoglobin 79.2 % THb (90.0-100.0); PCO2 ABG 26.7 mmHg (35.0-45.0); PO2 ABG 41.1 mmHg (80.0-100.0); PO2 FiO2 Ratio Arterial Blood 0.41 %; Reduced Hemoglobin 20.2 %THb (0-5.0); Total Hemoglobin 13.9 g/dL (12.0-18.0); pH ABG 7.488 (7.350-7.450)
[2019-10-15 21:51] LABS: Device HIGH FLOW THERAPY; Modified Allen's Test Pass; Site Drawn RIGHT RADIAL
[2019-10-15] MEDS: RAPID SEQUENCE INTUBATION KIT 1 EACH (22:05)
--- NOTE | 2019-10-15 22:30 | WPDPROCEDUR ---
Procedures Intubation Intubation Date: 10/15/19 Intubation Time: 22:30 A pre-procedural Time-Out was completed immediately before starting the procedure and confirmed: Patient Identification, Site, Procedure, Patient Position and the Availability of Requisite Equipment: Yes Sedative: etomidate Mg given: 10 Paralytic: succinylcholine Mg given: 100 Laryngoscope: fiber optic video scope ET tube size: cuffed Tube secured depth (cm): 24 Tube secured location: teeth Tube placement confirmation: visualized tube passing through cords, equal breath sounds bilaterally, no breath sounds over epigastrium and confirmation by capnometry Patient tolerated procedure: well and no complications Intubation complications: none Additional comments: Date of service was 10/15/2019 at 22:00 hrs.
[2019-10-15 23:07] LABS: Alveolar/Arterial O2 Gradient 587.6 mmHg; Base Excess ABG -7.9 mEq/l (+/-2.0); Fractional Inspired Oxygen 100 %; HCO3 ABG 20.4 mEq/l (22.0-26.0); Oxygen Content ABG 18.5 %vol (16.0-22.0); Oxygen Saturation ABG 90.9 % (95.0-100.0); Oxyhemoglobin 89.2 % THb (90.0-100.0); PO2 ABG 72.4 mmHg (80.0-100.0); PO2 FiO2 Ratio Arterial Blood 0.72 %; Total Hemoglobin 14.7 g/dL (12.0-18.0)
[2019-10-15 23:08] LABS: Device VENTILATOR; Site Drawn LEFT BRACHIAL; pH ABG 7.204 (7.350-7.450)
[2019-10-15 23:09] LABS: Arterial Blood Gas PEEP 12 cmH2O; Arterial Blood Gas Tidal Volume 300 ml; Arterial Blood Gas Vent Mode CMV; Arterial Blood Gas Ventilator rate 24 /MIN
[2019-10-15] MEDS: PROPOFOL IV EMULSION 100 ML 9 MG IV CONT (23:20)
[2019-10-15] MEDS: CISATRACURIUM BESYLATE 20 MG/10 ML VIAL 11.3 MG IV PUSH (23:47)
[2019-10-16] VITALS (34 sets, daily range): BP systolic 73–120; BP diastolic 42–87; PULSE 65–112; RESP 24–28; TEMP 36.3–39.2; O2SAT 88–100; BMI 32.3
[2019-10-16] MEDS: SODIUM CHLORIDE 0.9% IV 1,000 ML 50 ML IV CONT ×2 (00:05→15:39)
[2019-10-16 03:44] LABS: Base Excess ABG -4.4 mEq/l (+/-2.0); Carboxyhemoglobin 0.3 % THb (0-2.0); Fractional Inspired Oxygen 100 %; Methemoglobin ABG 0.4 %THb (0-1.5); Oxygen Content ABG 16.7 %vol (16.0-22.0); Oxygen Saturation ABG 90.5 % (95.0-100.0); Oxyhemoglobin 89.2 % THb (90.0-100.0); Reduced Hemoglobin 10.1 %THb (0-5.0); Site Drawn RIGHT BRACHIAL; Total Hemoglobin 13.3 g/dL (12.0-18.0); pH ABG 7.228 (7.350-7.450)
[2019-10-16 03:45] LABS: Basophils Percent Auto 0.2 % (0.2-1.2); Hematocrit 38.3 % (42.0-52.0); Immature Granulocyte Absolute 0.06 K/mm3 (0.00-0.031); Immature Granulocyte Percent A 0.7 % (0-0.5); Lymphocytes Absolute Auto 0.96 K/mm3 (0.9-3.2); Lymphocytes Percent Auto 11.4 % (18.3-44.2); Mean Corpuscular HGB Conc 33.9 g/dl (32-36); Mean Corpuscular Hemoglobin 29.3 pg (26-34); Mean Corpuscular Volume 86.5 fl (80-100); Mean Platelet Volume 12.2 fl (7.4-10.4); Monocytes Absolute Auto 0.2 K/mm3 (0.1-0.6); Monocytes Percent Auto 2.9 % (2.6-8.5); Neutrophils Absolute Auto 7.1 K/mm3 (1.3-6.7); Neutrophils Percent Auto 84.8 % (45.5-73.1); Platelet Count Result 119 k/mm3 (150-375); Red Blood Count 4.43 M/mm3 (4.6-6.20); Red Cell Distribution Width 13.3 % (11.5-14.5); White Blood Count 8.4 K/mm3 (4.5-10.0)
[2019-10-16 03:45] LABS: Arterial Blood Gas PEEP 12 cmH2O; Arterial Blood Gas Tidal Volume 300 ml; Arterial Blood Gas Vent Mode CMV; Arterial Blood Gas Ventilator rate 24 /MIN; Device VENTILATOR
[2019-10-16 03:58] LABS: D Dimer 0.73 ug/mL (<0.48)
[2019-10-16 04:19] LABS: Alanine Aminotransferase 34 U/L (4-50); Albumin Level 2.9 g/dL (3.5-5.1); Alkaline Phosphatase 69 U/L (38-126); Aspartate Amino Transferase 84 U/L (17-59); Bilirubin,Total 0.2 mg/dL (0.2-1.3); Blood Urea Nitrogen 13 mg/dL (9-20); CRP 26.9 mg/dL (<1.0); Calcium 6.5 mg/dL (8.4-10.2); Carbon Dioxide 26 mmol/L (22-30); Chloride 104 mmol/L (98-107); Estimated CRCL calculation 93 ml/min; Estimated Glomerular Filt Rate > 60; Glucose 124 mg/dL (75-110); Magnesium 2.5 mg/dL (1.6-2.3); Phosphorus 4.6 mg/dL (2.5-4.5); Potassium 4.2 mmol/L (3.4-5.0); Sodium 134 mmol/L (137-145)
[2019-10-16 04:20] LABS: Lactate Dehydrogenase 4223 U/L (313-618)
--- NOTE | 2019-10-16 06:46 | PC.NURSE ---
Patient elif Whyte updated on patient condition. Updated this morning per patient request prior to intubation.
[2019-10-16 08:11] LABS: Alveolar/Arterial O2 Gradient 604.7 mmHg; Base Excess ABG -4.8 mEq/l (+/-2.0); Fractional Inspired Oxygen 100 %; HCO3 ABG 22.1 mEq/l (22.0-26.0); Oxygen Content ABG 18.2 %vol (16.0-22.0); Oxygen Saturation ABG 88.3 % (95.0-100.0); Oxyhemoglobin 88.2 % THb (90.0-100.0); PCO2 ABG 47.5 mmHg (35.0-45.0); PO2 ABG 60.8 mmHg (80.0-100.0); PO2 FiO2 Ratio Arterial Blood 0.61 %; Total Hemoglobin 14.7 g/dL (12.0-18.0)
[2019-10-16 08:12] LABS: Site Drawn LEFT BRACHIAL; pH ABG 7.285 (7.350-7.450)
[2019-10-16 08:13] LABS: Device VENTILATOR; Modified Allen's Test Pass
[2019-10-16 08:14] LABS: Arterial Blood Gas PEEP 12 cmH2O; Arterial Blood Gas Tidal Volume 340 ml; Arterial Blood Gas Vent Mode CMV; Arterial Blood Gas Ventilator rate 24 /MIN
[2019-10-16] MEDS: ENOXAPARIN 40 MG/0.4 ML SYRINGE SUB-Q ×2 (08:28→20:15)
[2019-10-16 09:31] LABS: Alanine Aminotransferase 37 U/L (4-50)
[2019-10-16 10:28] LABS: Alveolar/Arterial O2 Gradient 592.9 mmHg; Base Excess ABG -3.2 mEq/l (+/-2.0); Device VENTILATOR; Fractional Inspired Oxygen 100 %; HCO3 ABG 22.5 mEq/l (22.0-26.0); Modified Allen's Test Pass; Oxygen Content ABG 17.9 %vol (16.0-22.0); Oxygen Saturation ABG 94.8 % (95.0-100.0); Oxyhemoglobin 93.5 % THb (90.0-100.0); PCO2 ABG 42.5 mmHg (35.0-45.0); PO2 ABG 77.6 mmHg (80.0-100.0); PO2 FiO2 Ratio Arterial Blood 0.78 %; Site Drawn ARTLINE; Total Hemoglobin 13.6 g/dL (12.0-18.0); pH ABG 7.341 (7.350-7.450)
[2019-10-16 10:29] LABS: Arterial Blood Gas PEEP 12 cmH2O; Arterial Blood Gas Tidal Volume 360 ml; Arterial Blood Gas Vent Mode CMV; Arterial Blood Gas Ventilator rate 28 /MIN
--- NOTE | 2019-10-16 10:49 | WPDINTPN ---
Progress Note: A&P Assessment and Plan (1) Acute respiratory failure with hypoxia: Code(s): J96.01 - Acute respiratory failure with hypoxia Status: Acute Assessment and Plan: Acute respiratory failure with increasing oxygen requirements, dominant high-flow nasal therapy with 93% FiO2 along with 15 L non-rebreather mask. O2 sats between 88 and 92% -patient was tachypneic, hypoxic, hypoxemic last night on on 10/15/2019 and was intubated. -currently on CMV mode of ventilation, peep of 12, 100% FiO2. Low tidal volume strategy. -chest x-ray and ABGs reviewed, ventilator adjusted will ABGs -arterial line was inserted to assist with ABGs -continue bronchodilators (2) COVID-19: Code(s): U07.1 - COVID-19 Status: Acute Assessment and Plan: Positive SARS-CoV-2 PCR - patient placed on droplet, airborne and contact isolation/precautions -inflammatory markers are significantly elevated -patient on Lovenox 40 mg SQ q.12 hours -appreciate infectious disease evaluation recommendation, ID agreed to starting patient on REMDESIVIR, which was commenced on 10/15/2019 -LFTs are being monitored closely and are currently within normal limits (3) Thrombocytopenia: Code(s): D69.6 - Thrombocytopenia, unspecified Status: Acute Assessment and Plan: Unknown etiology at this time. Platelets have improved, will continue to monitor (4) Fever: Qualifiers: Fever type: unspecified Qualified Code(s): R50.9 - Fever, unspecified Code(s): R50.9 - Fever, unspecified Status: Acute Assessment and Plan: Patient continues to spike fevers with T-max of 101.6? F, likely secondary to COVID-19 -continue p.r.n. Tylenol (5) Hyponatremia: Code(s): E87.1 - Hypo-osmolality and hyponatremia Status: Acute Assessment and Plan: Sodium levels are improving, will continue to monitor -normal saline at 50 mL/hour (6) BAYLEE (acute kidney injury): Code(s): N17.9 - Acute kidney failure, unspecified Status: Acute Assessment and Plan: Patient had creatinine of 1.3 on admission, has received IV fluids, creatinine has normalized -urine output has been adequate -continue to monitor renal function, electrolytes and urine output (7) Essential hypertension: Code(s): I10 - Essential (primary) hypertension Status: Acute Assessment and Plan: Stable blood pressures, will hold all antihypertensives at this time (8) DVT prophylaxis: Code(s): Z29.9 - Encounter for prophylactic measures, unspecified Status: Acute Assessment and Plan: Lovenox 40 mg q.12 hours Additional Plan Will discuss with family Code status: Full code Critical care time spent: 35 minutes Due to a high probability of clinically significant, life threatening deterioration, the patient required my highest level of preparedness to intervene emergently and I personally spent this critical care time directly and personally managing the patient. This critical care time included obtaining a history; examining the patient; pulse oximetry; ordering and review of studies; arranging urgent treatment with development of a management plan; evaluation of patient's response to treatment; frequent reassessment; and discussions with other providers. It was exclusive of separately billable procedures and treating other patients and teaching time. Please see Assessment and Plan section and the rest of the note for further information on patient assessment and treatment Subjective Date/time seen: 10/16/19 10:49 Reason for consult: Acute respiratory failure with increasing oxygen requirements, positive COVID-19, fevers -Remdesivir started on 10/15/2019 -intubated on 10/15/2019 -Art line placed on 10/16/2019 10/16/2019: Patient seen and examined the ICU, remains intubated, 100% FiO2, peep of 12 on CMV mode of ventilation. Sedated with fentanyl 200 mcg/hr, Versed 6 mg/hr, patient was
--- NOTE | 2019-10-16 11:09 | WPDPROCEDUR ---
Procedures Arterial Line Arterial Line Date: 10/16/19 Arterial Line Time: 08:25 Discussed with the patient/family/POA, the placement of an arterial catheter, including its clinical necessity/indication and associated potential risks, benefits and alternatives.: Yes Patient/family/POA and/or understands and acknowledges the need to proceed with the arterial catheter insertion as an important element of the patient's clinical management.: Yes Time Out Performed: Yes Patient Position: supine Air Export Operations Agent Prep: sterile gown, sterile gloves and mask Site: right and femoral Site Prep: chlorhexidine Technique used: ultrasound-guided Size (Gauge): 16 Length: 12 cm Closure/Dressing: suture, antimicrobial disc and tegaderm Patient tolerated procedure: well Complications: none
--- NOTE | 2019-10-16 13:28 | WPDINFPN2 ---
Progress Note: A&P Assessment and Plan (1) COVID-19: Code(s): U07.1 - COVID-19 Status: Acute Assessment and Plan: 1. CoVid 19 viral pneumonia 2. Respiratory failure due to #1, now intubated and on near maximal vent support 3. Mild elevation in transaminases REC remdesivir #2 / 5 days. Monitor LFTs, stop if > 5x normal. No antibacterials. Any additional therapy should be in the setting of a clinical trial. Subjective Date/time seen: 10/16/19 13:28 Interval history: events noted. Sedated and paralyzed, no pressors Exam Narrative: Exam Narrative: t max 38.7 since last visit Const: General: no acute distress Eyes: Sclera: normal sclerae Resp: Auscultation: clear to auscultation bilaterally and diminished lung sounds Cardio: Rate: regular rate Rhythm: regular rhythm Heart sounds: no murmurs GI: Percussion: Yes normal to percussion Urinary Catheter: Urinary Catheter: patent and draining and urine clear Extrem: General: no edema Objective Data Vital Signs Vital Signs: Vital Signs - 24 hr 10/15/19 14:00 10/15/19 15:17 10/15/19 16:00 Temperature 37.6 C Pulse Rate 72 74 76 Respiratory Rate 36 H 28 H 38 H Blood Pressure 99/72 L 105/74 Pulse Oximetry 100 96 93 10/15/19 16:35 10/15/19 18:00 10/15/19 18:07 Temperature 36.9 C 38.7 C H 38.7 C H Pulse Rate 85 Respiratory Rate 35 H Blood Pressure 114/71 Pulse Oximetry 94 10/15/19 20:00 10/15/19 22:01 10/15/19 22:10 Temperature 38.3 C H Pulse Rate 81 82 122 H Respiratory Rate 26 H 37 H Blood Pressure 112/78 131/77 Pulse Oximetry 90 79 L 73 L 10/15/19 22:13 10/15/19 22:16 10/15/19 23:03 Temperature Pulse Rate 82 75 118 H Respiratory Rate 33 H 35 H 25 H Blood Pressure 138/77 237/133 H 146/73 H Pulse Oximetry 83 L 29 L 10/15/19 23:06 10/15/19 23:11 10/15/19 23:16 Temperature Pulse Rate 120 H 128 H 115 H Respiratory Rate 24 H 28 H 28 H Blood Pressure 140/74 151/81 H 117/67 Pulse Oximetry 85 L 80 L 10/15/19 23:28 10/15/19 23:29 10/15/19 23:30 Temperature Pulse Rate 110 H 112 H 115 H Respiratory Rate 27 H 28 H 28 H Blood Pressure 79/49 L 78/47 L Pulse Oximetry 70 L 71 L 71 L 10/15/19 23:31 10/15/19 23:35 10/15/19 23:41 Temperature Pulse Rate 116 H 124 H 123 H Respiratory Rate 28 H 29 H 22 H Blood Pressure 81/49 L 80/51 L 83/60 L Pulse Oximetry 72 L 73 L 67 L 10/15/19 23:45 10/16/19 00:00 10/16/19 01:00 Temperature 38.3 C H Pulse Rate 122 H 112 H 100 Respiratory Rate 28 H 26 H 24 H Blood Pressure 121/69 110/87 Pulse Oximetry 73 L 89 L 91 10/16/19 01:01 10/16/19 01:30 10/16/19 02:00 Temperature Pulse Rate 100 97 90 Respiratory Rate 24 H 24 H 24 H Blood Pressure 105/75 106/72 100/69 Pulse Oximetry 94 91 90 10/16/19 02:35 10/16/19 03:52 10/16/19 04:00 Temperature 36.7 C Pulse Rate 84 78 78 Respiratory Rate 24 H 24 H Blood Pressure 97/72 L Pulse Oximetry 88 L 91 91 10/16/19 04:57 10/16/19 06:00 10/16/19 08:00 Temperature 36.3 C L Pulse Rate 75 75 77 Respiratory Rate 24 H 24 H Blood Pressure 99/73 L 92/69 L Pulse Oximetry 95 95 95 10/16/19 10:00 10/16/19 10:10 10/16/19 11:00 Temperature Pulse Rate 80 79 77 Respiratory Rate 28 H Blood Pressure 99/50 L Pulse Oximetry 100 100 100 10/16/19 12:00 Temperature 37.1 C Pulse Rate 78 Respiratory Rate 28 H Blood Pressure 95/53 L Pulse Oximetry 100 Intake/Output Intake/Output: Intake & Output 10/13/19 10/14/19 10/15/19 10/16/19 23:59 23:59 23:59 23:59 Intake Total 1660 2570 1600.0 Output Total 1400 725 Balance 1660 1170 875.0 Meds/Results Medications: Active Medications Generic Name Dose Route Start Last Admin Trade Name Freq PRN Reason Stop Dose Admin Acetaminophen 650 mg 10/14/19 00:00 10/15/19 18:07 Tylenol Tablet PO 650 mg Q4H PRN Administration Mild Pain (1-3) or Fever Albuterol 2 puff 10/13/19 22:55 10/15/19 23:34 Gael
--- NOTE | 2019-10-16 16:33 | PM.IMPN ---
Progress Note: A&P Assessment and Plan (1) Acute respiratory failure with hypoxia: Code(s): J96.01 - Acute respiratory failure with hypoxia Status: Acute Assessment and Plan: Secondary to COVID-19 infection. Patient now on high-flow oxygen. Chest x-ray today reviewed with embedded systems engineer. Worsening extensive bilateral airspace disease on imaging. Continue albuterol HFA. Will continue to monitor closely. Buildings Painter did discuss with patient code status in case of worsening respiratory status. Patient would be in agreement with intubation if necessary. Treatment of COVID-19 infection as noted below. Telemetry reviewed on 10/15/2019 with sinus rhythm. 10/16/19 16:33 Patient is a 49-year-old male presented emergency department with a complaint fever or chills cough mellitus patient is found to COVID-19 and worsening pneumonia last night patient went into respiratory failure and was intubated, patient is seen by Dr. Coronado being treated with remdesivir 2/5 is most likely patient has moral pneumonia due to COVID-19 and no other antibiotics recommended, repeat chest x-ray today again shows doing pneumonia, patient is seen by embedded systems engineer and appreciate (2) COVID-19: Code(s): U07.1 - COVID-19 Status: Acute Assessment and Plan: SARS-CoV-2 testing was positive on 10/09/2019. Acute respiratory failure as a result as noted above. Infectious Disease consulted with patient given remdesivir today. Acute phase reactants elevated and will monitor. (3) Thrombocytopenia: Code(s): D69.6 - Thrombocytopenia, unspecified Status: Acute Assessment and Plan: Platelets now improving again up to 118, 000 today. Most likely reactive to infection. Will monitor. No sign of bleeding. (4) Hyponatremia: Code(s): E87.1 - Hypo-osmolality and hyponatremia Status: Acute Assessment and Plan: Sodium now improved and stable at 134 today. Will continue to monitor. (5) BAYLEE (acute kidney injury): Code(s): N17.9 - Acute kidney failure, unspecified Status: Acute Assessment and Plan: Now resolved with creatinine normal at 0.60 today. Low-dose IV fluids remain in place. Will be cautious with fluids given COVID-19 positive status. Will monitor. (6) Essential hypertension: Code(s): I10 - Essential (primary) hypertension Status: Acute Assessment and Plan: Blood pressure reviewed on 10/15/2019 and currently stable. Not on antihypertensives. Will monitor. (7) DVT prophylaxis: Code(s): Z29.9 - Encounter for prophylactic measures, unspecified Status: Acute Assessment and Plan: Continue prophylactic Lovenox with platelets improving. Will monitor. Subjective Date/time seen: 10/16/19 16:33 Patient is a 49-year-old male presented emergency department with a complaint fever or chills cough mellitus patient is found to COVID-19 and worsening pneumonia last night patient went into respiratory failure and was intubated, patient is seen by Dr. Coronado being treated with remdesivir 2/ is most likely patient has moral pneumonia due to COVID-19 and no other antibiotics recommended, repeat chest x-ray today again shows doing pneumonia, patient is seen by embedded systems engineer and appreciate Review of Systems Review of Systems: ROS unobtainable: Yes unobtainable due to endotracheal tube Exam Narrative: Exam Narrative: Patient is COVID-19 positive patient was seen but not examine Const: General: no acute distress HENMT: General nose exam: Normal nares present Neck: Other: No retraction Resp: Effort & Inspection: normal respiratory effort GI: Other: Not distended Skin: General skin exam: normal color Neuro: Other: On vent and sedated Extrem: General: normal to inspection Psych: Other: On vent and sedated Objective Data Vital Signs Vital Signs: Vital Signs - 24 hr 10/15/19 16:35 10/15/19 18:00 10/15/19 18:07
[2019-10-16 16:43] LABS: Alveolar/Arterial O2 Gradient 562.3 mmHg; Base Excess ABG -2.7 mEq/l (+/-2.0); Fractional Inspired Oxygen 95 %; HCO3 ABG 21.1 mEq/l (22.0-26.0); Oxygen Content ABG 17.2 %vol (16.0-22.0); Oxygen Saturation ABG 96.2 % (95.0-100.0); Oxyhemoglobin 94.4 % THb (90.0-100.0); PCO2 ABG 33.7 mmHg (35.0-45.0); PO2 ABG 80.9 mmHg (80.0-100.0); PO2 FiO2 Ratio Arterial Blood 0.85 %; Total Hemoglobin 12.9 g/dL (12.0-18.0); pH ABG 7.415 (7.350-7.450)
[2019-10-16 16:44] LABS: Arterial Blood Gas PEEP 12 cmH2O; Arterial Blood Gas Tidal Volume 360 ml; Arterial Blood Gas Vent Mode CMV; Arterial Blood Gas Ventilator rate 28 /MIN; Device VENTILATOR; Site Drawn ARTLINE
[2019-10-16] MEDS: SODIUM CHLORIDE 0.9% IV 500 ML IV CONT (20:39)
--- NOTE | 2019-10-16 20:54 | PC.NURSE ---
Dr. Colunga notified of persistent hypotension both arterial and NIBP. Give 500NS bolus.
--- NOTE | 2019-10-16 21:42 | WPDPROCEDUR ---
Procedures Central Line Placement Right IJ: Central Line Date: 10/16/19 Central Line Time: 21:42 Performed Emergently - Given emergent patient condition, temporal constraints may have precluded informed consent.: Yes Time Out Performed: Yes Patient Position: supine Patient placed on monitor/pulse ox: Yes Provider Prep: mask, sterile gown, sterile gloves, Max. sterile barrier precautions, cap and hand hygiene Central line prep: Povidone-Iodine 1% Ultrasound used for placement: Yes Central line lumen inserted: triple Cymraes: 7 Length (cm): 17 Depth of Insertion (cm): 15 Post procedure: sutured in place, good blood return, all ports aspirated, flushed, capped, tegaderm, hemostatic disc, antimicrobial disc and aseptic technique maintained throughout procedure Post procedure x-ray: tip of catheter in good position Patient tolerated procedure: well Complications: other (Catheter was found looped on xray and not in proper place. Catheter was removed. ) Additional comments: Date of service was 10/16/2019 at 21:00 hrs. Arterial Line Size (Gauge): 16
--- NOTE | 2019-10-16 22:24 | P.PCNBED_ITS ---
Procedures Central Line Placement Left Femoral: Central Line Date: 10/16/19 Central Line Time: 22:25 Performed Emergently - Given emergent patient condition, temporal constraints may have precluded informed consent.: Yes Patient Position: supine Patient placed on monitor/pulse ox: Yes Provider Prep: mask, sterile gown, sterile gloves, Max. sterile barrier precautions, cap and hand hygiene Ultrasound used for placement: Yes Central line lumen inserted: triple Malaysian: 7 Length (cm): 20 Depth of Insertion (cm): 20 Post procedure: sutured in place, good blood return, all ports aspirated, flushed, capped, tegaderm, hemostatic disc, antimicrobial disc and aseptic technique maintained throughout procedure Patient tolerated procedure: well Complications: none Additional comments: Date of service of procedure was 10/16/2019 at 22:00 hrs. Arterial Line Size (Gauge): 16
[2019-10-16] MEDS: NOREPINEPHRINE 8 MG/D5W 250 ML 8 MG/250 ML BAG 9.4 MG IV CONT (22:35)
[2019-10-16 23:04] LABS: Base Excess ABG -4.1 mEq/l (+/-2.0); Carboxyhemoglobin 0.3 % THb (0-2.0); Fractional Inspired Oxygen 90 %; HCO3 ABG 21.4 mEq/l (22.0-26.0); Methemoglobin ABG 0.3 %THb (0-1.5); Oxygen Content ABG 17.1 %vol (16.0-22.0); Oxygen Saturation ABG 91.4 % (95.0-100.0); Oxyhemoglobin 90.2 % THb (90.0-100.0); PCO2 ABG 40.5 mmHg (35.0-45.0); PO2 ABG 64.2 mmHg (80.0-100.0); PO2 FiO2 Ratio Arterial Blood 0.71 %; Reduced Hemoglobin 9.2 %THb (0-5.0); Total Hemoglobin 13.5 g/dL (12.0-18.0)
[2019-10-16 23:05] LABS: Device VENTILATOR; Site Drawn ARTLINE
[2019-10-16 23:06] LABS: Arterial Blood Gas PEEP 5 cmH2O; Arterial Blood Gas Tidal Volume 360 ml; Arterial Blood Gas Vent Mode CMV; Arterial Blood Gas Ventilator rate 28 /MIN
[2019-10-17] VITALS (31 sets, daily range): BP systolic 88–139; BP diastolic 48–87; PULSE 56–90; RESP 20–28; TEMP 36.6–39; O2SAT 92–99
[2019-10-17] MEDS: SODIUM CHLORIDE 0.9% IV 1,000 ML 100 ML IV CONT (03:55)
[2019-10-17 04:11] LABS: Alveolar/Arterial O2 Gradient 519.2 mmHg; Base Excess ABG -2.6 mEq/l (+/-2.0); Carboxyhemoglobin 0.3 % THb (0-2.0); Device VENTILATOR; Fractional Inspired Oxygen 90 %; HCO3 ABG 22.8 mEq/l (22.0-26.0); Methemoglobin ABG 0.4 %THb (0-1.5); Oxygen Content ABG 16.9 %vol (16.0-22.0); Oxygen Saturation ABG 93.6 % (95.0-100.0); Oxyhemoglobin 92.2 % THb (90.0-100.0); PCO2 ABG 41.4 mmHg (35.0-45.0); PO2 ABG 70.8 mmHg (80.0-100.0); PO2 FiO2 Ratio Arterial Blood 0.79 %; Reduced Hemoglobin 7.1 %THb (0-5.0); Site Drawn ARTLINE; pH ABG 7.358 (7.350-7.450)
[2019-10-17 04:12] LABS: Arterial Blood Gas PEEP 12 cmH2O; Arterial Blood Gas Tidal Volume 360 ml; Arterial Blood Gas Vent Mode CMV; Arterial Blood Gas Ventilator rate 28 /MIN
[2019-10-17 05:22] LABS: Basophils Percent Auto 0.1 % (0.2-1.2); Eosinophils Absolute Auto 0.1 K/mm3 (0-0.3); Eosinophils Percent Auto 0.9 % (0-4.4); Hematocrit 34.7 % (42.0-52.0); Hemoglobin 11.8 g/dL (14.0-18.0); Immature Granulocyte Absolute 0.04 K/mm3 (0.00-0.031); Immature Granulocyte Percent A 0.5 % (0-0.5); Lymphocytes Absolute Auto 0.63 K/mm3 (0.9-3.2); Lymphocytes Percent Auto 7.7 % (18.3-44.2); Mean Corpuscular Hemoglobin 29.4 pg (26-34); Mean Corpuscular Volume 86.5 fl (80-100); Mean Platelet Volume 12.3 fl (7.4-10.4); Monocytes Absolute Auto 0.3 K/mm3 (0.1-0.6); Monocytes Percent Auto 3.1 % (2.6-8.5); Neutrophils Absolute Auto 7.1 K/mm3 (1.3-6.7); Neutrophils Percent Auto 87.7 % (45.5-73.1); Platelet Count Result 140 k/mm3 (150-375); Red Blood Count 4.01 M/mm3 (4.6-6.20); Red Cell Distribution Width 13.7 % (11.5-14.5); White Blood Count 8.1 K/mm3 (4.5-10.0)
[2019-10-17 06:34] LABS: Alanine Aminotransferase 28 U/L (4-50); Albumin Level 2.4 g/dL (3.5-5.1); Alkaline Phosphatase 66 U/L (38-126); Aspartate Amino Transferase 40 U/L (17-59); Bilirubin,Total 0.4 mg/dL (0.2-1.3); Blood Urea Nitrogen 14 mg/dL (9-20); CRP 31.9 mg/dL (<1.0); Calcium 6.5 mg/dL (8.4-10.2); Carbon Dioxide 25 mmol/L (22-30); Chloride 108 mmol/L (98-107); Estimated CRCL calculation 133 ml/min; Estimated Glomerular Filt Rate > 60; Glucose 96 mg/dL (75-110); Magnesium 2.4 mg/dL (1.6-2.3); Phosphorus 2.5 mg/dL (2.5-4.5); Potassium 3.6 mmol/L (3.4-5.0); Sodium 135 mmol/L (137-145)
[2019-10-17 06:35] LABS: Lactate Dehydrogenase 2065 U/L (313-618)
[2019-10-17] MEDS: CALCIUM GLUC 2,000 MG/NS 100ML 2,000 MG/100 ML BAG 100 MG IVPB (07:59)
[2019-10-17] MEDS: FUROSEMIDE INJ 40 MG/4 ML VIAL 20 MG IV PUSH (08:02)
[2019-10-17] MEDS: ENOXAPARIN 40 MG/0.4 ML SYRINGE SUB-Q ×2 (08:02→20:01)
--- NOTE | 2019-10-17 08:54 | WPDINTPN ---
Progress Note: A&P Assessment and Plan (1) Acute respiratory failure with hypoxia: Code(s): J96.01 - Acute respiratory failure with hypoxia Status: Acute Assessment and Plan: Acute respiratory failure - 10/15/2019 intubated. -currently on CMV mode of ventilation, peep of 12, 90% % FiO2. Low tidal volume strategy. Will gradually wean FiO2 -chest x-ray and ABGs reviewed, ventilator adjusted will ABGs -arterial line was inserted on 10/15 to assist with ABGs -continue bronchodilators -will diurese today (2) COVID-19: Code(s): U07.1 - COVID-19 Status: Acute Assessment and Plan: Positive SARS-CoV-2 PCR - patient placed on droplet, airborne and contact isolation/precautions -inflammatory markers are significantly elevated -patient on Lovenox 40 mg SQ q.12 hours -appreciate infectious disease evaluation recommendation, ID agreed to starting patient on REMDESIVIR, which was commenced on 10/15/2019 -LFTs are being monitored closely and are currently within normal limits (3) Thrombocytopenia: Code(s): D69.6 - Thrombocytopenia, unspecified Status: Acute Assessment and Plan: RESOLVED: Unknown etiology at this time. Platelets have improved, will continue to monitor (4) Fever: Qualifiers: Fever type: unspecified Qualified Code(s): R50.9 - Fever, unspecified Code(s): R50.9 - Fever, unspecified Status: Acute Assessment and Plan: Patient continues to spike fevers with T-max of 102.5 ? F, likely secondary to COVID-19 -continue p.r.n. Tylenol (5) Hyponatremia: Code(s): E87.1 - Hypo-osmolality and hyponatremia Status: Acute Assessment and Plan: Sodium levels are improving, will continue to monitor -will DC all IV fluids (6) BAYLEE (acute kidney injury): Code(s): N17.9 - Acute kidney failure, unspecified Status: Acute Assessment and Plan: Patient had creatinine of 1.3 on admission, has received IV fluids, creatinine has normalized -urine output has been adequate -continue to monitor renal function, electrolytes and urine output (7) Essential hypertension: Code(s): I10 - Essential (primary) hypertension Status: Acute Assessment and Plan: Patient hypotensive overnight requiring Levophed. (8) DVT prophylaxis: Code(s): Z29.9 - Encounter for prophylactic measures, unspecified Status: Acute Assessment and Plan: Lovenox 40 mg q.12 hours (9) Shock: Code(s): R57.9 - Shock, unspecified Status: Acute Assessment and Plan: Patient hypotensive on 10/16/2019 at night, required 1 L IV fluid bolus, central line inserted and started on Levophed. -maintain mean arterial pressure > 65 mmHg -likely related to COVID-19, sedation, positive pressure ventilation. - Additional Plan Will discuss with family Code status: Full code Critical care time spent: 37 minutes Due to a high probability of clinically significant, life threatening deterioration, the patient required my highest level of preparedness to intervene emergently and I personally spent this critical care time directly and personally managing the patient. This critical care time included obtaining a history; examining the patient; pulse oximetry; ordering and review of studies; arranging urgent treatment with development of a management plan; evaluation of patient's response to treatment; frequent reassessment; and discussions with other providers. It was exclusive of separately billable procedures and treating other patients and teaching time. Please see Assessment and Plan section and the rest of the note for further information on patient assessment and treatment Subjective Date/time seen: 10/17/19 08:54 Reason for consult: Acute respiratory failure with increasing oxygen requirements, positive COVID-19, fevers -Remdesivir started on 10/15/2019 -intubated on 10/15/2019 -Art line placed on 10/16/2019 -c
[2019-10-17 10:06] LABS: Lactic Acid Reflex 1.6 mmol/L (0.7-2.1)
[2019-10-17 10:30] LABS: Alveolar/Arterial O2 Gradient 470.3 mmHg; Base Excess ABG -1.8 mEq/l (+/-2.0); Fractional Inspired Oxygen 85 %; HCO3 ABG 22.9 mEq/l (22.0-26.0); Oxygen Saturation ABG 97.2 % (95.0-100.0); Oxyhemoglobin 95.6 % THb (90.0-100.0); PCO2 ABG 39.2 mmHg (35.0-45.0); PO2 ABG 95.1 mmHg (80.0-100.0); PO2 FiO2 Ratio Arterial Blood 1.12 %; Total Hemoglobin 13.3 g/dL (12.0-18.0); pH ABG 7.385 (7.350-7.450)
[2019-10-17 10:31] LABS: Device VENTILATOR; Site Drawn ARTLINE
[2019-10-17 10:32] LABS: Arterial Blood Gas PEEP 12 cmH2O; Arterial Blood Gas Tidal Volume 360 ml; Arterial Blood Gas Vent Mode CMV; Arterial Blood Gas Ventilator rate 28 /MIN
--- NOTE | 2019-10-17 11:00 | PCDIET ---
ICU Rounding Note: Patient remains intubated. MD ordering to start trickle feedings today: start at 10mL/hr and advance to 20mL/hr as tolerated. Recommend Vital 1.2. Last recorded weight is 83.1kg which is increased. +I/O. Bowel Motility: BM x 1 on 10/16/19. Labs Reviewed: Hgb (11.8), Hct (34.7), Cr (0.5), Na (135), Alb (2.4), Tameka Ca (7.78) Meds Noted: Albuterol, Nimbex, Remdesivir, Calcium Gluconate, Fentanyl, Versed, Levophed Additional Notes: No reported skin breakdown. Following daily in ICU rounds. Assessing/reassessing every Tuesday/Tuesday.
[2019-10-17] MEDS: PANTOPRAZOLE SODIUM IV 40 MG VIAL IV PUSH (11:39)
--- NOTE | 2019-10-17 16:29 | PM.IMPN ---
Progress Note: A&P Assessment and Plan (1) Acute respiratory failure with hypoxia: Code(s): J96.01 - Acute respiratory failure with hypoxia Status: Acute Assessment and Plan: 10/17/19 16:29 Secondary to COVID-19 infection. Patient now on high-flow oxygen. Chest x-ray today reviewed with tag writer. Worsening extensive bilateral airspace disease on imaging. Continue albuterol HFA. Will continue to monitor closely. Acidizer did discuss with patient code status in case of worsening respiratory status. Patient would be in agreement with intubation if necessary. Treatment of COVID-19 infection as noted below. Patient is a 49-year-old male presented emergency department with a complaint fever or chills cough mellitus patient is found to COVID-19 and worsening pneumonia last night patient went into respiratory failure and was intubated, patient is seen by Dr. Coronado being treated with remdesivir 07/11 is most likely patient has moral pneumonia due to COVID-19 and no other antibiotics recommended, repeat chest x-ray today shows improvement in pneumonia, discussed with tag writer patient symptoms are improving will continue present to monitor and plan (2) COVID-19: Code(s): U07.1 - COVID-19 Status: Acute Assessment and Plan: SARS-CoV-2 testing was positive on 10/09/2019. Acute respiratory failure as a result as noted above. Infectious Disease consulted with patient given remdesivir today. Acute phase reactants elevated and will monitor. (3) Thrombocytopenia: Code(s): D69.6 - Thrombocytopenia, unspecified Status: Acute Assessment and Plan: Platelets now improving again up to 140, 000 today. Most likely reactive to infection. Will monitor. No sign of bleeding. (4) Hyponatremia: Code(s): E87.1 - Hypo-osmolality and hyponatremia Status: Acute Assessment and Plan: Sodium now improved and stable at 135 today. Will continue to monitor. (5) BAYLEE (acute kidney injury): Code(s): N17.9 - Acute kidney failure, unspecified Status: Acute Assessment and Plan: Now resolved with creatinine normal at 0.50 today. Low-dose IV fluids remain in place. Will be cautious with fluids given COVID-19 positive status. Will monitor. (6) Essential hypertension: Code(s): I10 - Essential (primary) hypertension Status: Acute Assessment and Plan: Blood pressure reviewed on 10/15/2019 and currently stable. Not on antihypertensives. Will monitor. (7) DVT prophylaxis: Code(s): Z29.9 - Encounter for prophylactic measures, unspecified Status: Acute Assessment and Plan: Continue prophylactic Lovenox with platelets improving. Will monitor. Subjective Date/time seen: 10/17/19 16:29 Secondary to COVID-19 infection. Patient now on high-flow oxygen. Chest x-ray today reviewed with tag writer. Worsening extensive bilateral airspace disease on imaging. Continue albuterol HFA. Will continue to monitor closely. Acidizer did discuss with patient code status in case of worsening respiratory status. Patient would be in agreement with intubation if necessary. Treatment of COVID-19 infection as noted below. Patient is a 49-year-old male presented emergency department with a complaint fever or chills cough mellitus patient is found to COVID-19 and worsening pneumonia last night patient went into respiratory failure and was intubated, patient is seen by Dr. Coronado being treated with remdesivir 2/ is most likely patient has moral pneumonia due to COVID-19 and no other antibiotics recommended, repeat chest x-ray today shows improvement in pneumonia, discussed with tag writer patient symptoms are improving will continue present to monitor and plan Review of Systems Review of Systems: ROS unobtainable: Yes unobtainable due to endotracheal tube Exam Narrative: Exam Narrative: Patient is COVID-19 posi
[2019-10-18] VITALS (10 sets, daily range): BP systolic 83–121; BP diastolic 47–66; PULSE 71–93; RESP 28; TEMP 37.5–38.2; O2SAT 91–98
[2019-10-18] MEDS: ACETAMINOPHEN 325 MG TABLET 650 MG PO (02:00)
[2019-10-18 04:09] LABS: Base Excess ABG 0.4 mEq/l (+/-2.0); Carboxyhemoglobin 0.1 % THb (0-2.0); Fractional Inspired Oxygen 100 %; Methemoglobin ABG 0.4 %THb (0-1.5); Oxygen Saturation ABG 91.2 % (95.0-100.0); Oxyhemoglobin 89.6 % THb (90.0-100.0); PCO2 ABG 40.3 mmHg (35.0-45.0); PO2 ABG 59.7 mmHg (80.0-100.0); Reduced Hemoglobin 9.9 %THb (0-5.0); Total Hemoglobin 15.1 g/dL (12.0-18.0); pH ABG 7.411 (7.350-7.450)
[2019-10-18 04:10] LABS: Device VENTILATOR; Site Drawn ARTLINE
[2019-10-18 04:11] LABS: Arterial Blood Gas PEEP 12 cmH2O; Arterial Blood Gas Tidal Volume 360 ml; Arterial Blood Gas Vent Mode CMV; Arterial Blood Gas Ventilator rate 28 /MIN
[2019-10-18 05:18] LABS: Basophils Percent Auto 0.2 % (0.2-1.2); Eosinophils Absolute Auto 0.1 K/mm3 (0-0.3); Immature Granulocyte Absolute 0.04 K/mm3 (0.00-0.031); Immature Granulocyte Percent A 0.5 % (0-0.5); Lymphocytes Absolute Auto 0.74 K/mm3 (0.9-3.2); Lymphocytes Percent Auto 8.6 % (18.3-44.2); Mean Corpuscular HGB Conc 34.4 g/dl (32-36); Mean Corpuscular Hemoglobin 29.5 pg (26-34); Mean Corpuscular Volume 85.8 fl (80-100); Mean Platelet Volume 11.9 fl (7.4-10.4); Monocytes Absolute Auto 0.4 K/mm3 (0.1-0.6); Monocytes Percent Auto 4.6 % (2.6-8.5); Neutrophils Absolute Auto 7.4 K/mm3 (1.3-6.7); Neutrophils Percent Auto 85.1 % (45.5-73.1); Platelet Count Result 179 k/mm3 (150-375); Red Blood Count 3.73 M/mm3 (4.6-6.20); Red Cell Distribution Width 13.7 % (11.5-14.5); White Blood Count 8.6 K/mm3 (4.5-10.0)
[2019-10-18 06:07] LABS: D Dimer 4.29 ug/mL (<0.48)
[2019-10-18 06:13] LABS: Alanine Aminotransferase 31 U/L (4-50); Albumin Level 2.4 g/dL (3.5-5.1); Alkaline Phosphatase 65 U/L (38-126); Aspartate Amino Transferase 48 U/L (17-59); Bilirubin,Total 0.4 mg/dL (0.2-1.3); Blood Urea Nitrogen 14 mg/dL (9-20); Calcium 6.9 mg/dL (8.4-10.2); Carbon Dioxide 30 mmol/L (22-30); Chloride 105 mmol/L (98-107); Estimated CRCL calculation 97 ml/min; Estimated Glomerular Filt Rate > 60; Glucose 114 mg/dL (75-110); Lactate Dehydrogenase 1381 U/L (313-618); Magnesium 2.4 mg/dL (1.6-2.3); Phosphorus 3.1 mg/dL (2.5-4.5); Potassium 3.4 mmol/L (3.4-5.0); Sodium 137 mmol/L (137-145)
[2019-10-18 06:45] LABS: CRP 37.9 mg/dL (<1.0)
[2019-10-18] MEDS: CALCIUM GLUC 2,000 MG/NS 100ML 2,000 MG/100 ML BAG 100 MG IVPB (08:24)
[2019-10-18] MEDS: FUROSEMIDE INJ 40 MG/4 ML VIAL 20 MG IV PUSH (08:25)
[2019-10-18] MEDS: PANTOPRAZOLE SODIUM IV 40 MG VIAL IV PUSH (08:25)
[2019-10-18] MEDS: ENOXAPARIN 40 MG/0.4 ML SYRINGE SUB-Q (08:25)
[2019-10-18 09:08] LABS: Alanine Aminotransferase 32 U/L (4-50)
--- NOTE | 2019-10-18 10:58 | PCDIET ---
ICU Rounding Note: Patient remains on Vital 1.2 at 20mL/hr with no reported issues. No change in feeding rate at this time due to O2 requirements, per MD. Plan for transfer to tertiary care center. Last recorded weight is 80.4kg which is decreased from last review. Bowel Motility: Last documented BM on 10/16/19. Labs Reviewed: Glu (114), Alb (2.4), Tameka Ca (8.18) Meds Noted: Calcium Gluconate, Levophed, Nimbex, Protonix, Fentanyl, KCl, Versed, Remdesivir, Lasix Additional Notes: No skin breakdown reported. Agree with present tube feeding until medical condition allows increase toward goal. Following daily in ICU rounds. Assessing/reassessing every Tuesday/Tuesday.
--- NOTE | 2019-10-18 11:04 | WPDINTPN ---
Progress Note: A&P Assessment and Plan (1) Acute respiratory failure with hypoxia: Code(s): J96.01 - Acute respiratory failure with hypoxia Status: Acute Assessment and Plan: Acute respiratory failure - 10/15/2019 intubated. -currently on CMV mode of ventilation, peep of 12, 90% % FiO2. Low tidal volume strategy. Will gradually wean FiO2 -patient status post ceftriaxone and azithromycin, which was continued once Remdesivir was started -chest x-ray and ABGs reviewed, ventilator adjusted -arterial line was inserted on 10/15 to assist with ABGs and shock -continue bronchodilators -will diurese again today -given increased regarding FiO2 requirements, no change to possible slightly worsening of chest x-ray. I decided to transfer the patient to [facility] for higher level of care. -patient has been accepted [facility] (2) COVID-19: Code(s): U07.1 - COVID-19 Status: Acute Assessment and Plan: Positive SARS-CoV-2 PCR - patient placed on droplet, airborne and contact isolation/precautions -inflammatory markers are significantly elevated -patient on Lovenox 40 mg SQ q.12 hours -appreciate infectious disease evaluation recommendation, ID agreed to starting patient on REMDESIVIR, which was commenced on 10/15/2019 -LFTs are being monitored closely and are currently within normal limits (3) Thrombocytopenia: Code(s): D69.6 - Thrombocytopenia, unspecified Status: Acute Assessment and Plan: RESOLVED: Unknown etiology at this time. Platelets have improved, will continue to monitor (4) Fever: Qualifiers: Fever type: unspecified Qualified Code(s): R50.9 - Fever, unspecified Code(s): R50.9 - Fever, unspecified Status: Acute Assessment and Plan: Patient continues to spike fevers with T-max of 102.5 ? F, likely secondary to COVID-19 -continue p.r.n. Tylenol (5) Hyponatremia: Code(s): E87.1 - Hypo-osmolality and hyponatremia Status: Acute Assessment and Plan: Resolved: will continue to monitor -NOT on any IV fluids (6) BAYLEE (acute kidney injury): Code(s): N17.9 - Acute kidney failure, unspecified Status: Acute Assessment and Plan: Patient had creatinine of 1.3 on admission, has received IV fluids, creatinine has normalized - 0.7 on 10/18/2019 -urine output has been adequate -continue to monitor renal function, electrolytes and urine output (7) Essential hypertension: Code(s): I10 - Essential (primary) hypertension Status: Acute Assessment and Plan: Patient hypotensive overnight requiring Levophed. (8) DVT prophylaxis: Code(s): Z29.9 - Encounter for prophylactic measures, unspecified Status: Acute Assessment and Plan: Lovenox 40 mg q.12 hours (9) Shock: Code(s): R57.9 - Shock, unspecified Status: Acute Assessment and Plan: Patient hypotensive on 10/16/2019 at night, required 1 L IV fluid bolus, central line inserted and started on Levophed. -maintain mean arterial pressure > 65 mmHg -likely related to COVID-19, sedation, positive pressure ventilation. - Additional Plan Discussed with Pato, patient's son, updated with patient's condition and plan of care. I answered all questions. The son is aware that patient be transferring to [facility] Code status: Full code Critical care time spent: 39 minutes Due to a high probability of clinically significant, life threatening deterioration, the patient required my highest level of preparedness to intervene emergently and I personally spent this critical care time directly and personally managing the patient. This critical care time included obtaining a history; examining the patient; pulse oximetry; ordering and review of studies; arranging urgent treatment with development of a management plan; evaluation of patient's response to treatment; frequent reassessment; and d
--- NOTE | 2019-10-18 11:10 | PM.TDS ---
Transfer Discharge Sum: Prov Provider Date of admission: 10/13/19 21:16 Primary care physician: [employer] PHYSICIAN Admitting clinician: Drake Colunga MD Consults: 10/15/19 07:00 Consult to Physician Routine Comment: notified Consulting Provider: Satinder Watson call circuit worker/MD group to consult: Dr. watson Reason for consultation: ICU Has provider been notified: Yes 10/15/19 07:26 Consult to Physician Routine Comment: PAGED @ 08:16 Consulting Provider: Hang Coronado call circuit worker/MD group to consult: INFECTIOUS DIESEASE Reason for consultation: COVID positive, for REMDESIVIR Has provider been notified: Yes DS: Admitting Diagnosis Admitting Diagnosis Admitting Diagnosis: Acute respiratory failure with hypoxia DS: Discharge Diagnosis Discharge Diagnosis (1) Acute respiratory failure with hypoxia: Code(s): J96.01 - Acute respiratory failure with hypoxia Status: Acute Assessment and Plan: 10/17/19 16:29 Secondary to COVID-19 infection. Patient now on high-flow oxygen. Chest x-ray today reviewed with it service continuity supervisor. Worsening extensive bilateral airspace disease on imaging. Continue albuterol HFA. Will continue to monitor closely. Collaborative Teacher did discuss with patient code status in case of worsening respiratory status. Patient would be in agreement with intubation if necessary. Treatment of COVID-19 infection as noted below. Patient is a 49-year-old male presented emergency department with a complaint fever or chills cough mellitus patient is found to COVID-19 and worsening pneumonia last night patient went into respiratory failure and was intubated, patient is seen by Dr. Coronado being treated with remdesivir 3 is most likely patient has moral pneumonia due to COVID-19 and no other antibiotics recommended, repeat chest x-ray today shows improvement in pneumonia, discussed with it service continuity supervisor patient symptoms are improving will continue present to monitor and plan (2) COVID-19: Code(s): U07.1 - COVID-19 Status: Acute Assessment and Plan: SARS-CoV-2 testing was positive on 10/09/2019. Acute respiratory failure as a result as noted above. Infectious Disease consulted with patient given remdesivir today. Acute phase reactants elevated and will monitor. (3) Thrombocytopenia: Code(s): D69.6 - Thrombocytopenia, unspecified Status: Acute Assessment and Plan: Platelets now improving again up to 140, 000 today. Most likely reactive to infection. Will monitor. No sign of bleeding. (4) Hyponatremia: Code(s): E87.1 - Hypo-osmolality and hyponatremia Status: Acute Assessment and Plan: Sodium now improved and stable at 135 today. Will continue to monitor. (5) BAYLEE (acute kidney injury): Code(s): N17.9 - Acute kidney failure, unspecified Status: Acute Assessment and Plan: Now resolved with creatinine normal at 0.50 today. Low-dose IV fluids remain in place. Will be cautious with fluids given COVID-19 positive status. Will monitor. (6) Essential hypertension: Code(s): I10 - Essential (primary) hypertension Status: Acute Assessment and Plan: Blood pressure reviewed on 10/15/2019 and currently stable. Not on antihypertensives. Will monitor. (7) DVT prophylaxis: Code(s): Z29.9 - Encounter for prophylactic measures, unspecified Status: Acute Assessment and Plan: Continue prophylactic Lovenox with platelets improving. Will monitor. Transfer Discharge Sum: Med Medications Active and Home Medications: Home Medications acetaminophen 500 mg PO Q6H PRN #30 cap 10/09/19 [Rx Confirmed 10/13/19] doxycycline hyclate 100 mg PO Q12H 10 Days #20 cap 10/09/19 [Rx Confirmed 10/13/19] Active Medications Acetaminophen (Tylenol Tablet) 650 mg PO Q4H PRN PRN Reason: Mild Pain (1-3) or Fever Last Admin: 10/18/19 02:00 Dose: 650 mg Documented by: Estradaoxdamien
--- NOTE | 2019-10-18 12:30 | PC.NURSE ---
Pt transferred to [facility] via [facility]. Fentanyl, Versed, Nimbex and Levophed infusing. Pt stable on ventilator with transportation. Report called to SHAHIDA Richards @ [id number].
== END 2019-10-18 12:35 | disposition short-term general hospital (02) | DRG 137 ==
LOC: ANHED 21:22 → ANH3MEDSUR 21:48 → ANHICU 10-14 16:51 → ANH3MEDSUR 10-22 10:55 → ANHICU 10-22 10:55
PROVIDERS: Internal Medicine; Physician Assistant; Admitting Provider Family Medicine; Emergency Provider Emergency Medicine; Visit Provider Family Medicine
DX: U07.1 COVID-19 (principal); J96.01 Acute respiratory failure with hypoxia; R57.9 Shock, unspecified; N17.9 Acute kidney failure, unspecified; J12.89 Other viral pneumonia; D69.6 Thrombocytopenia, unspecified; E87.1 Hypo-osmolality and hyponatremia; R79.89 Other specified abnormal findings of blood chemistry; E78.5 Hyperlipidemia, unspecified; I10 Essential (primary) hypertension; T82.524A Displacement of infusion catheter, initial encounter; Z87.891 Personal history of nicotine dependence
CPT/HCPCS: 36415; 36600; 71045; 80048; 80053; 81001; 82306; 82375; 82728; 82805; 83050; 83605; 83615; 83735; 84100; 84460; 84484; 85025; 85055; 85380; 85610; 85730; 86140; 87040; 87086; 93005; 94002; 94003; 94640; 99285; A9270; C1751; C9113; J0131; J0456; J0610; J0696; J1650; J1940; J2250; J2704; J3010; J3480; J7030; J7040; J7050; J7060